=== PATIENT | male | born 1955 | race Caucasian/White ===

== ENCOUNTER 2020-05-21 09:27 | Outpatient (CLI) | payer MEDICARE, SELFPAY ==
[2020-05-21 10:26] LABS: Cholesterol 248 mg/dL (0-200); HDL Direct 52 mg/dL; Triglycerides 187 mg/dL (<150)
[2020-05-21 10:28] LABS: LDL Cholesterol Direct 150 mg/dL
[2020-05-21 10:49] LABS: Prostate Specific Antigen 1.1 ng/mL (< OR = 4.0)
[2020-05-21 10:58] LABS: Phenytoin Dilantin < 3 ug/mL (10-20)
== END 2020-05-21 09:28 | disposition home or self-care (01) ==
PROVIDERS: PCP Internal Medicine; Visit Provider Internal Medicine
DX: Z12.5 Encounter for screening for malignant neoplasm of prostate (principal); E78.5 Hyperlipidemia, unspecified; R56.9 Unspecified convulsions
CPT/HCPCS: 36415; 80061; 80185; 84153; G0103

== ENCOUNTER 2020-10-01 08:31 | Outpatient (CLI) | payer MEDICARE, SELFPAY ==
--- NOTE | 2020-10-01 11:30 | NEURO_ITS ---
Impression: # Complains of generalized arthralgia and numbness. # Left ulnar neuropathy across the elbow. # No Carpal Tunnel Syndrome. # Needle/EMG exam neurogenic in left ADM and 1st DI.in the ulnar nerve distribution.clinical correlation recommended. Nerve Conduction Studies Anti Sensory Summary Table Stim Site NR Peak (ms) P-T Amp (?V) Site1 Site2 Delta-P (ms) Dist (cm) Tyler (m/s) Left Median Anti Sensory (2-3nd Digit) Wrist 3.6 15.4 Wrist 2-3nd Digit 3.6 14.0 39 Wrist 3.4 34.1 Wrist 2-3nd Digit 3.6 14.0 39 Right Median Anti Sensory (2-3nd Digit) Wrist 3.5 20.3 Wrist 2-3nd Digit 3.5 14.0 40 Wrist 3.3 28.5 Wrist 2-3nd Digit 3.5 14.0 40 Left Radial Anti Sensory (Base 1st Digit) Wrist 2.4 11.0 Wrist Base 1st Digit 2.4 0.0 Right Radial Anti Sensory (Base 1st Digit) Wrist 2.5 13.3 Wrist Base 1st Digit 2.5 0.0 Left Ulnar Anti Sensory (5th Digit) Wrist 3.2 12.9 Wrist 5th Digit 3.2 14.0 44 Right Ulnar Anti Sensory (5th Digit) Wrist 3.2 9.0 Wrist 5th Digit 3.2 14.0 44 Motor Summary Table Stim Site NR Onset (ms) O-P Amp (mV) Site1 Site2 Delta-0 (ms) Dist (cm) Tyler (m/s) Left Median Motor (Abd Poll Brev) Wrist 3.5 2.1 Elbow Wrist 5.5 28.0 51 Elbow 9.0 1.9 Right Median Motor (Abd Poll Brev) Wrist 3.5 3.0 Elbow Wrist 4.5 26.0 58 Elbow 8.0 3.0 Left Ulnar Motor (Abd Dig Minimi) Wrist 3.0 2.8 A Elbow Wrist 6.1 29.0 48 A Elbow 9.1 4.7 B Elbow Wrist 3.6 21.0 58 B Elbow 6.6 4.1 Right Ulnar Motor (Abd Dig Minimi) Wrist 2.8 6.7 A Elbow Wrist 5.2 29.0 56 A Elbow 8.0 5.7 F Wave Studies NR F-Lat (ms) L-R F-Lat (ms) Left Median (Mrkrs) (Abd Poll Brev) 28.69 0.44 Right Median (Mrkrs) (Abd Poll Brev) 28.26 0.44 Left Ulnar (Mrkrs) (Abd Dig Min) 29.42 0.51 Right Ulnar (Mrkrs) (Abd Dig Min) 29.92 0.51 EMG Side Muscle Nerve Root Ins Act Fibs Amp Dur Recrt Comment Right 1stDorInt Ulnar C8-T1 Nml Nml Nml Nml Nml Right Ext Indicis Radial (Post Int) C7-8 Nml Nml Nml Nml Nml Right Ext Digitorum Radial (Post Int) C7-8 Nml Nml Nml Nml Nml Right BrachioRad Radial C5-6 Nml Nml Nml Nml Nml Right PronatorTeres Median C6-7 Nml Nml Nml Nml Nml Right Abd Poll Brev Median C8-T1 Nml Nml Nml Nml Nml Left 1stDorInt Ulnar C8-T1 Nml Nml Nml >12ms Reduced Left Ext Indicis Radial (Post Int) C7-8 Nml Nml Nml Nml Nml Left Ext Digitorum Radial (Post Int) C7-8 Nml Nml Nml Nml Nml Left BrachioRad Radial C5-6 Nml Nml Nml Nml Nml Left PronatorTeres Median C6-7 Nml Nml Nml Nml Nml Left Abd Poll Brev Median C8-T1 Nml Nml Nml Nml Nml Right ABD Dig Min Ulnar C8-T1 Nml Nml Nml Nml Nml Left ABD Dig Min Ulnar C8-T1 Nml Nml Nml >12ms Reduced MTDD
== END 2020-10-01 08:32 | disposition home or self-care (01) ==
PROVIDERS: PCP Internal Medicine; Visit Provider Psychiatry & Neurology Neurology
DX: R20.2 Paresthesia of skin (principal); G56.22 Lesion of ulnar nerve, left upper limb
CPT/HCPCS: 95886; 95911

== ENCOUNTER 2020-11-20 07:45 | Outpatient (CLI) | payer MEDICARE, SELFPAY ==
[2020-11-20 08:47] LABS: Alanine Aminotransferase 12 U/L (4-50); Albumin Level 4.4 g/dL (3.5-5.1); Alkaline Phosphatase 48 U/L (38-126); Anion Gap 6 mmol/L (8-16); Aspartate Amino Transferase 21 U/L (17-59); Bilirubin,Total 0.3 mg/dL (0.2-1.3); Blood Urea Nitrogen 15 mg/dL (9-20); Calcium 8.9 mg/dL (8.4-10.2); Carbon Dioxide 27 mmol/L (22-30); Chloride 108 mmol/L (98-107); Cholesterol 270 mg/dL (0-200); Estimated Glomerular Filt Rate > 60; Glucose 115 mg/dL (75-110); HDL Direct 59 mg/dL; Phenytoin Dilantin 6 ug/mL (10-20); Potassium 4.4 mmol/L (3.4-5.0); Sodium 141 mmol/L (137-145); Triglycerides 142 mg/dL (<150)
[2020-11-20 08:57] LABS: LDL Cholesterol Direct 163 mg/dL
== END 2020-11-20 07:46 | disposition home or self-care (01) ==
PROVIDERS: PCP Internal Medicine; Visit Provider Nurse Practitioner
DX: G40.409 Other generalized epilepsy and epileptic syndromes, not intractable, without status epilepticus (principal); E78.5 Hyperlipidemia, unspecified; Z12.5 Encounter for screening for malignant neoplasm of prostate; E67.1 Hypercarotenemia; Z51.81 Encounter for therapeutic drug level monitoring
CPT/HCPCS: 36415; 80053; 80061; 80185; 84153; 84443; G0103

== ENCOUNTER 2021-01-09 08:55 | Outpatient (CLI) | payer MEDICARE, SELFPAY ==
[2021-01-09 09:27] LABS: Alanine Aminotransferase 16 U/L (4-50); Albumin Level 4.8 g/dL (3.5-5.1); Alkaline Phosphatase 50 U/L (38-126); Anion Gap 8 mmol/L (8-16); Aspartate Amino Transferase 32 U/L (17-59); Bilirubin,Total 0.2 mg/dL (0.2-1.3); Blood Urea Nitrogen 17 mg/dL (9-20); Calcium 9.8 mg/dL (8.4-10.2); Carbon Dioxide 30 mmol/L (22-30); Chloride 106 mmol/L (98-107); Cholesterol 296 mg/dL (0-200); Estimated Glomerular Filt Rate > 60; Glucose 129 mg/dL (75-110); HDL Direct 62 mg/dL; Phenytoin Dilantin 6 ug/mL (10-20); Potassium 4.8 mmol/L (3.4-5.0); Sodium 144 mmol/L (137-145); Triglycerides 137 mg/dL (<150)
[2021-01-09 09:36] LABS: LDL Cholesterol Direct 152 mg/dL
== END 2021-01-09 08:56 | disposition home or self-care (01) ==
PROVIDERS: PCP Internal Medicine; Visit Provider Nurse Practitioner
DX: E78.5 Hyperlipidemia, unspecified (principal); Z51.81 Encounter for therapeutic drug level monitoring
CPT/HCPCS: 36415; 80053; 80061; 80185; 82248

== ENCOUNTER 2021-06-30 18:48 | Emergency (ER) | payer MEDICARE, SELFPAY ==
--- NOTE | ~2021-06-30 | XR_ITS ---
EXAMINATION: XR chest 2V DATE: 06/30/2021 19:31 INDICATION: Weakness TECHNIQUE: frontal and lateral views of the chest were obtained. COMPARISON: None FINDINGS: The lungs are clear with no focal airspace opacities, pulmonary edema, pleural effusion or pneumothor ax. The cardiomediastinal silhouette is normal. Mild thoracic spondylosis. IMPRESSION: 1. No acute cardiopulmonary disease. Reviewed, dictated and finalized at location A. 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
--- NOTE | ~2021-06-30 | CT_ITS ---
EXAMINATION: CT brain wo con DATE: 06/30/2021 23:00 INDICATION: Weakness TECHNIQUE: Computed tomography (CT) of the head was performed without intravenous contrast. Sagittal and coronal reconstructions were performed. Automated exposure control and iterative reconstruction t echnique were employed. The dose-length product was 605.33 mGy-cm. COMPARISON: None FINDINGS: No acute intracranial hemorrhage, acute infarction or abnormal extra axial fluid collection. Ventricl es are normal and symmetric. No mass/mass effect. Mild mucosal thickening the bilateral ethmoid and l eft maxillary sinuses. The orbits and mastoid air cells are normal. IMPRESSION: 1. No acute intracranial process. Reviewed, dictated and finalized at location A. 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
[2021-06-30 18:55] VITALS: BP 153/84; PULSE 79; RESP 17; TEMP 36.4; O2SAT 100
--- NOTE | 2021-06-30 18:56 | ECG_ITS ---
Measurements Intervals [place] Rate: 71 P: 20 ND: 109 QRS: 4 QRSD: 84 T: 40 QT: 346 QTc: 378 Interpretive Statements SINUS RHYTHM WITH SHORT ND INTERVAL VOLTAGE CRITERIA FOR LVH MINIMAL Q WAVES- HIGH LATERAL LEADS BASELINE ARTIFACT- I BORDERLINE ECG Electronically Signed On 06-30-2021 20:20:33 DIESEL MACHINIST by Brooks Hurtado D.O.
[2021-06-30 19:47] LABS: Basophils Percent Auto 0.5 % (0.2-1.2); Eosinophils Absolute Auto 0.1 K/mm3 (0-0.3); Eosinophils Percent Auto 2.4 % (0-4.4); Hematocrit 39.1 % (42.0-52.0); Immature Granulocyte Absolute 0.02 K/mm3 (0.00-0.031); Immature Granulocyte Percent A 0.3 % (0-0.5); Lymphocytes Absolute Auto 1.74 K/mm3 (0.9-3.2); Lymphocytes Percent Auto 29.9 % (18.3-44.2); Mean Corpuscular HGB Conc 33.2 g/dl (32-36); Mean Corpuscular Hemoglobin 30.2 pg (26-34); Mean Corpuscular Volume 90.7 fl (80-100); Mean Platelet Volume 9.7 fl (7.4-10.4); Monocytes Absolute Auto 0.7 K/mm3 (0.1-0.6); Monocytes Percent Auto 12.5 % (2.6-8.5); Neutrophils Absolute Auto 3.2 K/mm3 (1.3-6.7); Neutrophils Percent Auto 54.4 % (45.5-73.1); Platelet Count Result 292 k/mm3 (150-375); Red Blood Count 4.31 M/mm3 (4.6-6.20); Red Cell Distribution Width 12.1 % (11.5-14.5); White Blood Count 5.8 K/mm3 (4.5-10.0)
[2021-06-30 20:00] LABS: Alanine Aminotransferase 20 U/L (4-50); Alkaline Phosphatase 46 U/L (38-126); Anion Gap 10 mmol/L (8-16); Aspartate Amino Transferase 24 U/L (17-59); Bilirubin,Total 0.4 mg/dL (0.2-1.3); Blood Urea Nitrogen 22 mg/dL (9-20); Calcium 10.2 mg/dL (8.4-10.2); Carbon Dioxide 25 mmol/L (22-30); Chloride 105 mmol/L (98-107); Estimated CRCL calculation 51 ml/min; Estimated Glomerular Filt Rate > 60; Glucose 120 mg/dL (65-110); Potassium 3.9 mmol/L (3.4-5.0); Sodium 140 mmol/L (137-145)
[2021-06-30 20:59] VITALS: BP 151/81; PULSE 82; RESP 18; TEMP 36.1; O2SAT 100
--- NOTE | 2021-06-30 22:10 | ED.WEAKNESS ---
HPI - Weakness General Chief complaint: Weakness Stated complaint: legs are hurting and weak Time Seen by Provider: 06/30/21 21:54 Source: patient Mode of arrival: ambulatory Limitations: no limitations History of Present Illness HPI Narrative: Patient is a 65-year-old male complaining of generalized weakness, especially lower extremities, started this past week states that he almost fell few times due to it. Patient denies any speech or visual disturbance, focal weakness or numbness, dizziness, headache, chest pain, shortness of breath, abdominal pain, nausea, vomiting, diarrhea, fever or chills. Mother states that ever since he was taken off phenytoin he has been having the above symptoms. Related Data Allergies Allergy/AdvReac Type Severity Reaction Status Date / Time No Known Allergies Allergy Verified 06/30/21 22:22 Review of Systems Review of Systems: All systems reviewed & are unremarkable except as noted in HPI and below Constitutional: Constitutional: Denies body ache(s), Denies chills, Denies excessive sweating, Denies fatigue, Denies fever(s), Denies headache(s), Denies lethargy, Denies malaise, Denies weakness and Denies weight loss Eyes: Eyes: Denies blurry vision, Denies change in vision and Denies loss of vision ENT: Denies dizziness, Denies ear discharge, Denies headache(s), Denies lip swelling, Denies epistaxis, Denies nasal congestion, Denies neck pain, Denies throat swelling and Denies tongue swelling Cardiovascular: Cardiovascular: Denies chest pain, Denies chest pain at rest, Denies chest pain with activity, Denies diaphoresis, Denies rapid heart rate, Denies edema, Denies irregular heart rhythm, Denies lightheadedness, Denies palpitations, Denies dyspnea and Denies dyspnea on exertion Respiratory: Respiratory: Denies chest congestion, Denies cough, Denies hemoptysis, Denies dyspnea and Denies dyspnea on exertion Gastrointestinal: Gastrointestinal: Denies abdominal pain, Denies melena, Denies hematochezia, Denies diarrhea, Denies nausea, Denies vomiting and Denies hematemesis Musculoskeletal: Musculoskeletal: Denies abnormal gait, Denies deformity, Denies joint swelling, Denies limited range of motion, Denies neck pain and Denies numbness Neurologic: Denies Abnormal speech present, Denies abnormal gait, Denies confusion, Denies dizziness, Denies headache(s), Denies focal weakness, Denies loss of vision, Denies numbness, Denies Other visual disturbances and Denies Sensory deficit (Neuro) Psychiatric: Psychiatric: Denies confusion, Denies depression, Denies auditory hallucinations, Denies homicidal ideation and Denies suicidal ideation Endocrine: Endocrine: Denies cold intolerance, Denies excessive sweating, Denies fatigue, Denies heat intolerance and Denies palpitations Hematologic/Lymphatic: Hematologic/Lymphatic: Denies easy bleeding and Denies easy bruising Allergic/Immunologic: Allergic/Immunologic: Denies lip swelling, Denies throat swelling and Denies tongue swelling PMFSH Past Medical History Medical History Anoxic brain injury Issue at Hyperlipidemia Seizure disorder, grand mal Social History Social History Smoking status: Never smoker Alcohol intake: never Substance use: never Gender identity (if verbalized by the patient): Male Agree to blood products: Yes Exam Const: General: cooperative, healthy appearing, comfortable, no acute distress, well developed, alert and awake; No confusion Orientation/consciousness: oriented to person, oriented to place, oriented to time, patient oriented x3 and No confusion Limitations: no limitations HENMT: Head: normal to inspection, normocephalic and atraumatic Ears: hearing grossly normal bilaterally, TM normal on the right and TM normal on the left General nose exam: Normal external nose present, Normal nares present and No nasal
[2021-06-30 22:20] VITALS: BP 135/93; PULSE 80; RESP 20; O2SAT 100
[2021-06-30 22:21] VITALS: PULSE 78
[2021-06-30] MEDS: SODIUM CHLORIDE 0.9% IV 1,000 ML 999 ML IV CONT (22:21)
[2021-06-30 22:56] LABS: Add Urine Microscopic? YES; Appearance Urine Cloudy (Clear); Bacteria Urine Trace /hpf; Bilirubin Urine Negative (Negative); Blood Urine Negative (Negative); Budding Yeast Urine Present /hpf; Color Urine Yellow (Yellow); Glucose Urine UA Negative (Negative); Ketones Urine Negative (Negative); Leukocyte Esterase Ur Negative LEU/UL (Negative); Mucus Urine Few /lpf; Nitrate Urine Negative (Negative); Protein Urine Negative (Negative); Squamous Epithelial Cell Urine Rare /hpf (Few); Urobilinogen Urine Negative mg/dL (<2.0)
[2021-06-30 23:29] VITALS: BP 142/87; PULSE 78; RESP 15; O2SAT 99
[2021-06-30 23:34] LABS: Troponin I < 0.012 ng/mL (0.000-0.034)
[2021-07-01 00:19] VITALS: BP 144/92; PULSE 69; RESP 17; O2SAT 100
== END 2021-07-01 00:21 | disposition home or self-care (01) ==
PROVIDERS: Emergency Medicine; Emergency Provider Emergency Medicine; PCP Emergency Medicine
DX: R53.1 Weakness (principal); N39.0 Urinary tract infection, site not specified; E78.5 Hyperlipidemia, unspecified; G40.909 Epilepsy, unspecified, not intractable, without status epilepticus; R94.31 Abnormal electrocardiogram [ECG] [EKG]
CPT/HCPCS: 36415; 70450; 71046; 80053; 81001; 84484; 85025; 93005; 96361; 96365; 99284; J0696; J7030

== ENCOUNTER 2021-08-29 07:58 | Outpatient (CLI) | payer MEDICARE, SELFPAY ==
[2021-08-29 09:38] LABS: Alanine Aminotransferase 24 U/L (4-50); Albumin Level 4.6 g/dL (3.5-5.1); Alkaline Phosphatase 48 U/L (38-126); Anion Gap 11 mmol/L (8-16); Aspartate Amino Transferase 29 U/L (17-59); Bilirubin,Total 0.7 mg/dL (0.2-1.3); Blood Urea Nitrogen 23 mg/dL (9-20); Calcium 9.4 mg/dL (8.4-10.2); Carbon Dioxide 22 mmol/L (22-30); Chloride 105 mmol/L (98-107); Cholesterol 217 mg/dL (0-200); Estimated Glomerular Filt Rate > 60; Glucose 160 mg/dL (65-110); HDL Direct 38 mg/dL; Potassium 4.3 mmol/L (3.4-5.0); Sodium 138 mmol/L (137-145); Triglycerides 163 mg/dL (<150)
[2021-08-29 11:28] LABS: LDL Cholesterol Direct 127 mg/dL
== END 2021-08-29 07:59 | disposition home or self-care (01) ==
PROVIDERS: PCP Emergency Medicine; Visit Provider Emergency Medicine
DX: E78.5 Hyperlipidemia, unspecified (principal)
CPT/HCPCS: 36415; 80053; 80061

== ENCOUNTER 2021-09-08 13:45 | Outpatient (CLI) | payer MEDICARE, SELFPAY ==
[2021-09-08 18:13] LABS: Hemoglobin A1C 5.7 % (<5.7)
== END 2021-09-08 13:46 | disposition home or self-care (01) ==
PROVIDERS: PCP Emergency Medicine; Visit Provider Emergency Medicine
DX: R73.09 Other abnormal glucose (principal); E78.2 Mixed hyperlipidemia
CPT/HCPCS: 36415; 83036

== ENCOUNTER 2022-01-05 07:59 | Outpatient (CLI) | payer MEDICARE, SELFPAY ==
[2022-01-05 08:35] LABS: Alanine Aminotransferase 20 U/L (6-50); Albumin Level 4.4 g/dL (3.5-5.1); Alkaline Phosphatase 42 U/L (38-126); Anion Gap 7 mmol/L (8-16); Aspartate Amino Transferase 25 U/L (17-59); Bilirubin,Total 0.5 mg/dL (0.2-1.3); Blood Urea Nitrogen 21 mg/dL (9-20); Calcium 8.7 mg/dL (8.4-10.2); Carbon Dioxide 26 mmol/L (22-30); Chloride 106 mmol/L (98-107); Cholesterol 188 mg/dL (0-200); Estimated Glomerular Filt Rate 55; Glucose 115 mg/dL (65-110); HDL Direct 42 mg/dL; Potassium 4.4 mmol/L (3.4-5.0); Sodium 139 mmol/L (137-145); Triglycerides 95 mg/dL (<150)
[2022-01-05 08:46] LABS: LDL Cholesterol Direct 111 mg/dL
== END 2022-01-05 08:00 | disposition home or self-care (01) ==
LOC: ANHLAB 08:00
PROVIDERS: PCP Emergency Medicine; Visit Provider Emergency Medicine
DX: E78.2 Mixed hyperlipidemia (principal)
CPT/HCPCS: 36415; 80053; 80061

== ENCOUNTER 2022-01-15 09:46 | Outpatient (CLI) | payer MEDICARE, SELFPAY ==
--- NOTE | ~2022-01-15 | XR_ITS ---
EXAMINATION: XR lumbar spine 2-3V DATE: 01/15/2022 10:10 INDICATION: Dorsalgia, unspecified. TECHNIQUE: 3 views of lumbar spine were obtained. COMPARISON: None. FINDINGS: There is 4 degrees levocurvature of lumbar spine. There is 3 mm retrolisthesis of L2 on L3 and L3 on L4. Vertebral body heights are normal. There is mildly decreased disc height at L2-L3 and L 3-L4. There are endplate osteophytes at most levels. There is multilevel mild facet joint osteoarthri tis. IMPRESSION: 1. Mild lumbar spondylosis. Reviewed, dictated and finalized at location A. IMPRESSION: 1. Mild lumbar spondylosis.
--- NOTE | ~2022-01-15 | XR_ITS ---
XR knee LT 2V 01/15/2022 10:10 Indication: Left knee pain Procedure: 2 views left knee Comparison: No prior studies for comparison. Findings: There is mild polyarticular osteoarthritis of the left knee. No acute fracture or traumatic malalignment. No significant joint effusion. No foreign body. Impression: 1: Mild polyarticular osteoarthritis of the left knee. Reviewed, dictated and finalized at location A. Impression: 1: Mild polyarticular osteoarthritis of the left knee.
--- NOTE | ~2022-01-15 | XR_ITS ---
XR knee RT 2V 01/15/2022 10:10 Indication: Right knee pain Procedure: 2 views right knee Comparison: No prior studies for comparison. Findings: There is mild patellofemoral compartment osteoarthritis. No acute fracture or traumatic mal alignment. No significant joint effusion. There is a small radiodensity in the subcutaneous tissues i nferior to the patella, suspicious for foreign body measuring 2 mm. Impression: 1: Mild patellofemoral compartment osteoarthritis. 2: Radiodensity measuring 2 mm in the subcutaneous tissues inferior to the patella, best seen on late ral view, consistent with foreign body. Reviewed, dictated and finalized at location A. Impression: 1: Mild patellofemoral compartment osteoarthritis. 2: Radiodensity measuring 2 mm in the subcutaneous tissues inferior to the russell lla, best seen on lateral view, consistent with foreign body.
== END 2022-01-15 09:47 | disposition home or self-care (01) ==
LOC: ANHIMG 09:47
PROVIDERS: PCP Emergency Medicine; Visit Provider Emergency Medicine
DX: M25.569 Pain in unspecified knee (principal); G89.29 Other chronic pain; M54.9 Dorsalgia, unspecified; M47.816 Spondylosis without myelopathy or radiculopathy, lumbar region; M17.0 Bilateral primary osteoarthritis of knee; R93.89 Abnormal findings on diagnostic imaging of other specified body structures
CPT/HCPCS: 72100; 73560

== ENCOUNTER 2022-02-13 07:48 | Observation (INO) | payer MEDICARE, SELFPAY ==
[2022-02-13] VITALS (18 sets, daily range): BP systolic 111–175; BP diastolic 68–89; PULSE 63–91; RESP 12–22; TEMP 35.6–37.5; O2SAT 88–100; BMI 27.7
--- NOTE | ~2022-02-13 | NM_ITS ---
EXAMINATION: NM venu stress w perfusion DATE: 02/16/2022 14:24 INDICATION: Chest pain TECHNIQUE: Rest images were obtained following intravenous administration of 9.9 mCi Tc99m tetrofosmi n (Myoview). The patient was infused intravenously with Lexiscan (Regadenoson). Then, 31.2 mCi Tc99m tetrofosmin (Myoview) was administered intravenously, and stress images were obtained. Data was recon structed into short axis and horizontal and vertical long axis SPECT images. Gated SPECT images were also obtained. COMPARISON: None. FINDINGS: There is no definite reversible or fixed perfusion abnormality to suggest ischemia or infar ction. There is normal left ventricular chamber size, wall motion and ejection fraction. Left ventr icular ejection fraction measures 51%. IMPRESSION: 1. Normal myocardial perfusion at rest and during stress. 2. Left ventricular ejection fraction measuring 51%. Reviewed, dictated and finalized at location A.
--- NOTE | ~2022-02-13 | CT_ITS ---
EXAMINATION: CTA chest PE protocol DATE: 02/13/2022 09:16 INDICATION: Shortness of breath. Medial chest pain. Elevated d-dimer. TECHNIQUE: Computed tomography angiography (CTA) of the chest was performed with 100 mL Omnipaque-350 intravenous contrast timed to evaluate the pulmonary arteries. Coronal maximum intensity projection 3D-reconstructions were created by the technologist. Automated exposure control and iterative reconst ruction technique were employed. Exam dose: 336.74 mGy-cm total exam DLP. COMPARISON: 02/13/2022 portable AP chest FINDINGS: There is diagnostic contrast enhancement of the pulmonary arteries and no evidence of pulmo nary embolism. No thoracic aortic aneurysm or dissection. Cardiomegaly. No pericardial or pleural effusion. No hilar or mediastinal mass lesion or lymphadenopa thy. Minimal atelectasis in the lower lobes. No pulmonary consolidation or pulmonary mass lesion. Small sliding hiatal hernia. Included skeletal structures are unremarkable. IMPRESSION: No evidence of pulmonary embolus and Small sliding hiatal hernia Reviewed, dictated and finalized at Location [facility]. Reviewed, dictated and finalized at location A.
--- NOTE | ~2022-02-13 | XR_ITS ---
XR chest 1V portable DATE: 02/13/2022 08:19 INDICATION: Sharp chest pain. Shortness of breath, cough. TECHNIQUE: Portable upright AP chest on 02/13/2022 at 0817 hours COMPARISON: 06/30/2021 AP and lateral views FINDINGS: Heart size appears within normal limits. Minimal atelectasis at the lung bases. The lungs otherwise appear clear. No pleural effusion or pulmo nary vascular congestion or pneumothorax. IMPRESSION: Minimal atelectasis at the lung bases Reviewed, dictated and finalized at location A.
--- NOTE | 2022-02-13 07:52 | ECG_ITS ---
Measurements Intervals [place] Rate: 66 P: 62 [place]: 159 QRS: -3 QRSD: 86 T: 33 QT: 374 QTc: 394 Interpretive Statements SINUS RHYTHM VENTRICULAR PREMATURE COMPLEX BASELINE ARTIFACT- II, III BORDERLINE ECG Electronically Signed On 02-13-2022 9:00:47 CDT by Brooks Hurtado D.O.
--- NOTE | 2022-02-13 08:00 | ED.CHESTPAIN ---
HPI - Chest Pain General Chief Complaint: Chest Pain Stated Complaint: CP Time Seen by Provider: 02/13/22 07:51 History of Present Illness HPI narrative: pt awake then around 6am sharp and pressure nonradiating 03/24 cp says no h/o this with sob and sweating. no f/uri/n/v/d/abd pain or other leg issues only risk factor high chol Related Data Allergies Allergy/AdvReac Type Severity Reaction Status Date / Time No Known Allergies Allergy Verified 02/13/22 08:01 Review of Systems Constitutional: Comments: CONSTITUTIONAL: Denies fever, chills, has sweats. EYES: Denies visual changes, redness, or discharge. ENT: Denies rhinorrhea, congestion, sore throat, or otalgia. CARDIOVASCULAR: Denies, palpitations, or edema. has cp RESPIRATORY: Denies cough has sob GASTROINTESTINAL: Denies abdominal pain, nausea, vomiting, or diarrhea. GENITOURINARY: Denies dysuria or hematuria. SKIN: Denies rash or itching. MUSCULOSKELETAL: Denies back pain, joint pain, or myalgia. NEUROLOGIC: Denies headache, numbness, or weakness. PSYCHIATRIC: Denies anxiety or depression. [facility] Past Medical History Medical History Anoxic brain injury Issue at Hyperlipidemia Seizure disorder, grand mal Social History Social History Smoking status: Never smoker Alcohol intake: never Substance use: never Gender identity (if verbalized by the patient): Male Agree to blood products: Yes Exam Const: Other: APPEARANCE: Well appearing, no pain in distress, well-nourished. Head normocephalic atraumtaic. EYES: PERRLA/EOMI, conjunctivae very clear. NOSE: Normal no drainage EARS:TMS clear Regi Robison, with good light reflex. THROAT: Pharynx clear, no exudate. NECK: Supple. No adenopathy, no masses. RESPIRATORY: Airway patent, repsirations nonlabored. Clear to auscultation bilaterally, no rales, rhonchi, wheezing. mild tachypnea CARDIOVASCULAR: Regular rate and rhythm without murmurs rubs or gallops. ABDOMINAL: Soft, nontender, nondistended, no hepatosplenomegally MUSCULOSKELETAl: Moves all extremities. Strenght/ROM intact, No edema, No calf tenderness. NEURO: Alert. Cranial nerves II through XII intact. Good gait. Good coordination SKIN:: Warm, Normal Color clamy PSYCHIATRIC: Normal affect/mood, normal interaction with parents. mild anxiety Course Course Emergency Course: pt later admitted to nurse coughing for last 24-48 hours so she added covid test Dr Parsons accepts want cardio consult Dr Bond paged also at 0940 Reevaluation(s) Reevaluation #1: pt sleepy after meds updated on results at 0922 Vital Signs Vital signs: Vital Signs Temperature 36.7 C 02/13/22 07:53 Pulse Rate 67 02/13/22 07:53 Respiratory Rate 17 02/13/22 07:53 Pulse Oximetry 100 02/13/22 07:53 Oxygen Delivery Room Air 02/13/22 07:53 Temperature 36.7 C 02/13/22 07:53 Pulse Rate 88 02/13/22 09:13 Respiratory Rate 19 02/13/22 09:13 Blood Pressure 167/89 H 02/13/22 09:13 Pulse Oximetry 88 L 02/13/22 09:13 Oxygen Delivery Room Air 02/13/22 08:17 MDM - Chest Pain Lab Data Result diagrams: 02/13/22 08:02 02/13/22 08:02 Labs: Lab Results 02/13/22 02/13/22 02/13/22 Range/Units 08:02 08:02 08:02 WBC 6.5 (4.5-10.0) K/mm3 RBC 4.41 L (4.6-6.20) M/mm3 Hgb 13.0 L (14.0-18.0) g/dL Hct 38.9 L (42.0-52.0) % MCV 88.2 (80-100) fl MCH 29.5 (26-34) pg MCHC 33.4 (32-36) g/dl RDW 12.3 (11.5-14.5) % Plt Count 247 (150-375) k/mm3 MPV 9.7 (7.4-10.4) fl Immature Gran % (Auto) 0.5 (0-0.5) % Neut % (Auto) 58.5 (45.5-73.1) % Lymph % (Auto) 24.2 (18.3-44.2) % Clinch % (Auto) 13.5 H (2.6-8.5) % Eos % (Auto) 3.1 (0-4.4) % Baso % (Auto) 0.2 (0.2-1.2) % Lymph # (Auto) 1.58 (0.9-3.2) K/mm3 Clinch # (Auto) 0.9 H (0.1-0.6) K/mm3
[2022-02-13] MEDS: MORPHINE SULFATE (*CRX) 4 MG/ML INJ IV PUSH (08:06)
[2022-02-13] MEDS: ASPIRIN 81 MG CHEWABLE TABLET 324 MG PO (08:07)
[2022-02-13] MEDS: ONDANSETRON INJ 4 MG/2 ML VIAL IV PUSH (08:07)
[2022-02-13] MEDS: NITROGLYCERIN OINTMENT 1 INCH DOSE TOPICAL (08:11)
[2022-02-13 08:13] LABS: Basophils Percent Auto 0.2 % (0.2-1.2); Eosinophils Absolute Auto 0.2 K/mm3 (0-0.3); Eosinophils Percent Auto 3.1 % (0-4.4); Hematocrit 38.9 % (42.0-52.0); Immature Granulocyte Absolute 0.03 K/mm3 (0.00-0.031); Immature Granulocyte Percent A 0.5 % (0-0.5); Lymphocytes Absolute Auto 1.58 K/mm3 (0.9-3.2); Lymphocytes Percent Auto 24.2 % (18.3-44.2); Mean Corpuscular HGB Conc 33.4 g/dl (32-36); Mean Corpuscular Hemoglobin 29.5 pg (26-34); Mean Corpuscular Volume 88.2 fl (80-100); Mean Platelet Volume 9.7 fl (7.4-10.4); Monocytes Absolute Auto 0.9 K/mm3 (0.1-0.6); Monocytes Percent Auto 13.5 % (2.6-8.5); Neutrophils Absolute Auto 3.8 K/mm3 (1.3-6.7); Neutrophils Percent Auto 58.5 % (45.5-73.1); Platelet Count Result 247 k/mm3 (150-375); Red Blood Count 4.41 M/mm3 (4.6-6.20); Red Cell Distribution Width 12.3 % (11.5-14.5); White Blood Count 6.5 K/mm3 (4.5-10.0)
[2022-02-13 08:24] LABS: INR 1.1; Prothrombin Time 13.8 Seconds (11.1-14.7)
[2022-02-13 08:25] LABS: Partial Thromboplastin Time 26.9 SECONDS (22.3-36.8)
[2022-02-13 08:26] LABS: Ethanol < 10 mg/dL (<10)
[2022-02-13 08:28] LABS: Alanine Aminotransferase 20 U/L (6-50); Albumin Level 4.6 g/dL (3.5-5.1); Alkaline Phosphatase 52 U/L (38-126); Anion Gap 7 mmol/L (8-16); Aspartate Amino Transferase 23 U/L (17-59); Bilirubin,Total 0.2 mg/dL (0.2-1.3); Blood Urea Nitrogen 29 mg/dL (9-20); Calcium 8.8 mg/dL (8.4-10.2); Carbon Dioxide 24 mmol/L (22-30); Chloride 107 mmol/L (98-107); Estimated CRCL calculation 45 ml/min; Estimated Glomerular Filt Rate 55; Glucose 141 mg/dL (65-110); Lipase 235 U/L (23-300); Magnesium 1.9 mg/dL (1.6-2.3); Potassium 3.6 mmol/L (3.4-5.0); Sodium 138 mmol/L (137-145)
[2022-02-13 08:30] LABS: D Dimer 0.67 ug/mL (<0.48)
[2022-02-13 08:38] LABS: Troponin I < 0.012 ng/mL (0.000-0.034)
[2022-02-13] MEDS: LORazepam INJ (*CRX) 2 MG/ML VIAL 1 MG IV PUSH (08:43)
[2022-02-13] MEDS: HYDROmorphone HCL INJ (*CRX) 1 MG/ML SYR 2 MG IM (08:45)
--- NOTE | 2022-02-13 08:50 | PC.NURSE ---
Pt to CT scan via stretcher at this time, pt is on tele monitor.
[2022-02-13 08:56] LABS: SARS-CoV-2 RNA PCR Negative
--- NOTE | 2022-02-13 11:17 | PC.NURSE ---
Report received by JOSE C Hurtado with the ED department at 1113. Patient to go to IMU room 205-2.
[2022-02-13 11:29] LABS: Troponin I < 0.012 ng/mL (0.000-0.034)
--- NOTE | 2022-02-13 11:40 | ADMGEN ---
This patient, Kuldeep Sims, was admitted to IMU Room 205-02 at 1135 from the ED. Patient/family oriented to hospital policies and general routines including ID bracelet, bed and alarms, visiting hours, pain management, procedures, bathroom and other care routines, personal items, smoking policy, room service/diet, and visiting hours. Information on how to activate the Rapid Response Team has been discussed. Patient/Family are encouraged to report perceived risks to care and to ask questions if they do not understand what they are told or what they should do.
--- NOTE | 2022-02-13 12:11 | PM.IMHP ---
H&P: HPI History of Present Illness Date/Time: 02/13/22 12:11 Chief Complaint: Chest pain Narrative: patient is 66-year-old male with a past medical history of anoxic brain injury, issue since , hyperlipidemia, and seizure disorder-grand mal. he presented to [facility] with complaints of sharp pain and pressure that was nonradiating 8/10 chest pain at 6:00 a.m. this morning. Patient denies any history of shortness of breath, chest pain, and diaphoresis. He did endorse a cough for the last 24-48 hours to an emergency department nurse and therefore COVID test was added. While in the emergency department labs and imaging were obtained. Patient had WBC of 6.5, hemoglobin 13, hematocrit 38.9 and platelet 247, sodium 138, potassium 3.6, BUN 29, creatinine 1.3, glucose 141 and a negative troponin. Lipase 235-WNL an alcohol level that was negative. A chest x-ray did reveal minimal atelectasis at the lung bases and a CTA was performed with no evidence of pulmonary embolism and had a small sliding had heel hernia. EKG revealed normal sinus rhythm with PVCs no ST changes. Hospitalist was consulted for further observation. Patient was administered 324 mg of aspirin x1, received Dilaudid, lorazepam, morphine and 1 in nitroglycerin ointment applied to the chest. Cardiology was consulted During the patient's hospitalization he will have troponins trend, telemetry monitoring and possible need for cardiology intervention. family at bedside very involved in his care. questions answered at bedside. Review of Systems Review of Systems: All systems reviewed & are unremarkable except as noted in HPI and below PMFSH Past Medical History Medical History Anoxic brain injury Issue at Hyperlipidemia Seizure disorder, grand mal Social History Social History Smoking status: Never smoker Alcohol intake: never Substance use: never Substance use type: does not use Gender identity (if verbalized by the patient): Male Spiritual care concerns: No Agree to blood products: Yes Meds Home Medications and Allergies Home Medications Medication Instructions Recorded Confirmed Type fenofibrate nanocrystallized 145 145 mg PO DAILY #90 tabs 11/27/21 Rx mg tablet Allergies Allergy/AdvReac Type Severity Reaction Status Date / Time No Known Allergies Allergy Verified 02/13/22 08:01 Vital Signs Vital Signs - 24 hr 02/13/22 07:53 02/13/22 07:59 02/13/22 08:07 Temperature 98.0 F Pulse Rate 67 63 67 Respiratory Rate 17 22 H Blood Pressure 175/89 H Pulse Oximetry 100 100 Oxygen Delivery Room Air 02/13/22 08:17 02/13/22 09:13 02/13/22 09:49 Temperature Pulse Rate 88 71 Respiratory Rate 19 15 Blood Pressure 167/89 H 132/82 Pulse Oximetry 100 88 L 96 Oxygen Delivery Room Air 02/13/22 10:51 02/13/22 11:24 02/13/22 12:09 Temperature 96.0 F L Pulse Rate 65 87 91 Respiratory Rate 12 17 18 Blood Pressure 142/81 H 130/82 123/79 Pulse Oximetry 99 99 96 Oxygen Delivery Exam Narrative: General: No acute distress. Mental Status: Awake, alert and oriented to person, place, and time with clear speech. Skin: Skin in warm, dry and intact without rashes or lesions. Head: Normocephalic and atraumatic. Eyes: Conjunctivae are clear without exudates or hemorrhage. Sclera is non-icteric. EOM are intact, PERRLA. Ears: The external ear and canal are non-tender and without swelling or discharge. Nose: Nasal mucosa is pink and moist. Septum midline. Nares patent bilaterally. Throat: Oral mucosa pink and moist with good dentition. Tongue midline. Neck: The neck supple without adenopathy. Trachea midline. No JVD. Cardiac: S1 and S2 regular rate and rhythm. No murmurs, gallops, or rubs auscultated. Respiratory: Chest wall symmetric, nontender and without de
--- NOTE | 2022-02-13 12:18 | ECHO_ITS ---
Patient Info Name: Kuldeep Sims Age: 66 years : 1955 Gender: Male Ht: 64 in Wt: 161 lbs BSA: 1.83 m2 HR: 71 bpm BP: 123 / 79 mmHg Technical Quality: Fair Exam Date: 02/13/2022 1:39 PM Exam Location: [facility] Pulmonary Exam Room: [facility] Patient Status: Inpatient Admit Date: 02/13/2022 Staff Ordering Physician: Rosa Burton APRN Television Director: Johanny Das RDCS Attending Provider: Toney Parsons MD Referring Physician: Micheal ROMANO; Exam Type: CA echo doppler color flow Study Info Indications - sob chest pain Complete two-dimensional, color flow and Doppler transthoracic echocardiogram is performed. Summary 1. Complete two-dimensional, color flow and Doppler transthoracic echocardiogram is performed. 2. Left ventricular chamber dimension is normal. 3. Left ventricular systolic function is normal, estimated at 65-70%. 4. There is mildly increased left ventricular wall thickness. 5. The left ventricular diastolic function is grade I diastolic dysfunction. 6. Right ventricular chamber dimension is normal. 7. Right ventricular systolic function is normal. 8. Left atrial chamber dimension is mildly enlarged. Left Ventricle Left ventricular chamber dimension is normal. Left ventricular systolic function is normal, estimated at 65-70%. There is mildly increased left ventricular wall thickness. Left ventricular septal wall motion is normal. The left ventricular diastolic function is grade I diastolic dysfunction. Right Ventricle Right ventricular chamber dimension is normal. Right ventricular systolic function is normal. Left Atria Left atrial chamber dimension is mildly enlarged. Right Atria Right atrial chamber dimension is normal. Aortic Valve The aortic valve is trileaflet. There is no aortic valve sclerosis. There is no aortic valve stenosis. There is no aortic valve regurgitation. Pulmonic Valve The pulmonic valve is normal. There is no pulmonic valve stenosis. There is no pulmonic regurgitation. Mitral Valve The mitral valve has normal leaflets. There is no mitral valve stenosis. There is no mitral valve regurgitation. Tricuspid Valve The tricuspid valve leaflets are normal. There is no significant tricuspid valve stenosis. There is trace tricuspid valve regurgitation. No pulmonary hypertension, estimated pulmonary arterial systolic pressure is 30 mmHg. Pericardium/Pleural The pericardium appears normal. There is no pericardial effusion. Aorta The aortic root size at the sinus of Valsalva is normal. The prox ascending aorta size is normal. Left Ventricular Outflow Tract Name Value Normal LVOT 2D LVOT Diameter 2.0 cm LVOT Doppler LVOT Peak Gradient 5 mmHg LVOT Mean Gradient 2 mmHg LVOT VTI 22 cm LVOT VTI/AV VTI Ratio 0.6 LVOT Stroke Volume 71 ml LVOT CO 13.7 l/min LVOT CI 7.5 l/min/m2 Pulmonic Valve --------
[2022-02-13 12:36] LABS: Hemoglobin A1C 5.7 % (<5.7)
[2022-02-13] MEDS: NITROGLYCERIN OINTMENT 1 INCH DOSE TRANSDERM ×3 (14:20→23:47)
--- NOTE | 2022-02-13 14:52 | PM.CNCAR ---
Assessment and Plan Assessment and plan (1) Chest pain: Code(s): R07.9 - Chest pain, unspecified Status: Acute Plan Assessment acute chest pain with negative cardiac enzymes and no dynamic EKG changes it is unlikely that his chest pain is cardiac in origin given the fact that his pain has been persistent for hours with negative cardiac enzymes Plan cardiac stress test on Tuesday Start PPI for possible GI related cause for chest pain History of Present Illness History of Present Illness Consult date/time: 02/13/22 14:52 Reason For Visit: Phest Pain, HH Narrative: 66-year-old male patient presented with acute severe chest pain substernal and epigastric sharp pain persistent nonradiating without precipitating or relieving factors. Chest pain started this morning and had been persistent for several hours. Patient denies any prior history of chest pain or heart disease. His no sweating nausea vomiting. Review of Systems Review of Systems: Review of system is negative except for stated above in HPI PMFSH Past Medical History Medical History Anoxic brain injury Issue at Hyperlipidemia Seizure disorder, grand mal Family History Family History (Updated 02/13/22 @ 13:52 by America Jesus RN) Mother Cancer Cerebrovascular accident Father Cancer Sibling Diabetes mellitus Cerebrovascular accident Social History Social History Smoking status: Never smoker Second hand tobacco smoke exposure: Yes (Childhood) Alcohol intake: never Substance use: never Substance use type: does not use Gender identity (if verbalized by the patient): Male Spiritual care concerns: No Agree to blood products: Yes Meds Home Medications and Allergies Home Medications Medication Instructions Recorded Confirmed Type fenofibrate nanocrystallized 145 145 mg PO DAILY #90 tabs 11/27/21 02/13/22 Rx mg tablet Allergies Allergy/AdvReac Type Severity Reaction Status Date / Time No Known Allergies Allergy Verified 02/13/22 08:01 Vital Signs Vital Signs - 24 hr 02/13/22 07:53 02/13/22 07:59 02/13/22 08:07 Temperature 36.7 C Pulse Rate 67 63 67 Respiratory Rate 17 22 H Blood Pressure 175/89 H Pulse Oximetry 100 100 Oxygen Delivery Room Air 02/13/22 08:17 02/13/22 09:13 02/13/22 09:49 Temperature Pulse Rate 88 71 Respiratory Rate 19 15 Blood Pressure 167/89 H 132/82 Pulse Oximetry 100 88 L 96 Oxygen Delivery Room Air 02/13/22 10:51 02/13/22 11:24 02/13/22 12:09 Temperature 35.6 C L Pulse Rate 65 87 91 Respiratory Rate 12 17 18 Blood Pressure 142/81 H 130/82 123/79 Pulse Oximetry 99 99 96 Oxygen Delivery 02/13/22 12:00 02/13/22 12:00 Temperature Pulse Rate 69 Respiratory Rate Blood Pressure Pulse Oximetry Oxygen Delivery Room Air Exam Const: General: comfortable and no acute distress Other: Able to lie flat HENMT: General nose exam: Normal nares present and no epistaxis Mouth: Yes moist mucous membranes Eyes: Sclera: sclerae normal Pupils: Equal, round and reactive pupils present Neck: Neck: supple and no JVD Carotids: no bruits Resp: Auscultation: clear to auscultation bilaterally and lung sounds not diminished Other: No chest wall tenderness Cardio: Rate: regular rate Rhythm: regular rhythm Heart sounds: no gallops, no murmurs and no rubs GI: GI Palp: Yes Soft to palpation and No Tenderness to palpation present (GI) Auscultation: normal bowel sounds Skin: General skin exam: normal color, rashes and/or lesions noted and no erythema Other: Warm Neuro: Cranial nerves: Yes Equal, round and reactive pupils present Speech: normal speech Other: No obvious focal deficit or facial asymmetry Extrem: General: no edema Other: Normal capillary refills Intact distal pulses.
[2022-02-13 15:08] LABS: Troponin I < 0.012 ng/mL (0.000-0.034)
[2022-02-14] VITALS (12 sets, daily range): BP systolic 108–145; BP diastolic 58–88; PULSE 61–88; RESP 16–20; TEMP 36.7–37.3; O2SAT 94–97
[2022-02-14 05:09] LABS: Basophils Percent Auto 0.1 % (0.2-1.2); Eosinophils Absolute Auto 0.1 K/mm3 (0-0.3); Eosinophils Percent Auto 1.5 % (0-4.4); Hematocrit 35.8 % (42.0-52.0); Immature Granulocyte Absolute 0.04 K/mm3 (0.00-0.031); Immature Granulocyte Percent A 0.4 % (0-0.5); Mean Corpuscular HGB Conc 33.5 g/dl (32-36); Mean Corpuscular Hemoglobin 29.8 pg (26-34); Mean Corpuscular Volume 88.8 fl (80-100); Mean Platelet Volume 9.9 fl (7.4-10.4); Monocytes Absolute Auto 1.1 K/mm3 (0.1-0.6); Monocytes Percent Auto 11.7 % (2.6-8.5); Neutrophils Absolute Auto 6.7 K/mm3 (1.3-6.7); Neutrophils Percent Auto 72.3 % (45.5-73.1); Platelet Count Result 240 k/mm3 (150-375); Red Blood Count 4.03 M/mm3 (4.6-6.20); Red Cell Distribution Width 12.4 % (11.5-14.5); White Blood Count 9.3 K/mm3 (4.5-10.0)
[2022-02-14 05:21] LABS: Alanine Aminotransferase 17 U/L (6-50); Albumin Level 4.1 g/dL (3.5-5.1); Alkaline Phosphatase 40 U/L (38-126); Anion Gap 7 mmol/L (8-16); Aspartate Amino Transferase 23 U/L (17-59); Bilirubin,Total 0.7 mg/dL (0.2-1.3); Blood Urea Nitrogen 20 mg/dL (9-20); Calcium 8.5 mg/dL (8.4-10.2); Carbon Dioxide 25 mmol/L (22-30); Chloride 105 mmol/L (98-107); Estimated CRCL calculation 45 ml/min; Estimated Glomerular Filt Rate 60; Glucose 106 mg/dL (65-110); Potassium 3.8 mmol/L (3.4-5.0); Sodium 137 mmol/L (137-145)
[2022-02-14] MEDS: NITROGLYCERIN OINTMENT 1 INCH DOSE TRANSDERM ×4 (06:39→22:32)
--- NOTE | 2022-02-14 07:07 | PM.IMPN ---
Progress Note: A&P Assessment and Plan (1) Chest pain: Code(s): R07.9 - Chest pain, unspecified Status: Acute Assessment and Plan: Monitor vital signs, I&Os, chest pain, shortness of breath and patient is a fall risk Monitor serial troponins, Serum electrolytes, and cbc Keep serum potassium >4 and keep magnesium >2 Cardiology consulted, appreciate assistance and recommendations Nitro paste, per ACS protocol, patient denies any headache or active chest pain. Defer to Cardiology team to continue this medication. Monitor for bloody bowel movements,chest pain,SOB or dizziness/lightheadedness Echocardiogram performed on 02/13/2022, pending results Consider adding atorvastatin 40 mg daily, aspirin 81 mg daily and metoprolol tartrate 25 mg p.o. b.i.d., patient does not have any signs or symptoms of active chest pain or cardiac concerns. Continue to monitor patient received 324 aspirin in the emergency department. (2) Hiatal hernia: Code(s): K44.9 - Diaphragmatic hernia without obstruction or gangrene Status: Acute Assessment and Plan: stable (3) Hyperglycemia: Code(s): R73.9 - Hyperglycemia, unspecified Status: Acute Assessment and Plan: hemoglobin A1c was 5.7. No history is of diabetes mellitus. Patient was hyperglycemic in the emergency department. (4) Seizure disorder, grand mal: Code(s): G40.409 - Other generalized epilepsy and epileptic syndromes, not intractable, without status epilepticus Status: Acute Assessment and Plan: monitor Seizure precautions (5) Anoxic brain injury: Code(s): G93.1 - Anoxic brain damage, not elsewhere classified Status: Acute Assessment and Plan: stable Subjective Date/time seen: 02/14/22 07:07 cardiology evaluated the patient on 02/13/2022 and suggested the patient may have GERD like symptoms and started the patient on Protonix. Patient is also scheduled for stress test on Tuesday and patient. Patient will remain here for the holiday and monitored for cardiac abnormalities. Patient currently denies any chest pain, shortness a breath, nausea, vomiting, upset stomach or diarrhea. He denies active cardiac symptoms. Review of Systems Review of Systems: All systems reviewed & are unremarkable except as noted in HPI and below Exam Narrative: General: No acute distress. Mental Status: Awake, alert and oriented to person, place, and time with clear speech. mentally delayed Skin: Skin in warm, dry and intact without rashes or lesions. Head: Normocephalic and atraumatic. Eyes: Conjunctivae are clear without exudates or hemorrhage. Sclera is non-icteric. EOM are intact, PERRLA. Ears: The external ear and canal are non-tender and without swelling or discharge. Nose: Nasal mucosa is pink and moist. Septum midline. Nares patent bilaterally. Throat: Oral mucosa pink and moist with good dentition. Tongue midline. Neck: The neck supple without adenopathy. Trachea midline. No JVD. Cardiac: S1 and S2 regular rate and rhythm. No murmurs, gallops, or rubs auscultated. Respiratory: Chest wall symmetric, nontender and without deformity or trauma. Respirations even and unlabored. Lung sounds are clear to auscultation in all lobes bilaterally without wheezes, rhonchi, or rales. Abdominal: Abdomen soft, round and non-tender to palpation. Bowel sounds present and normoactive in all 4 quadrants. Spine: Neck and back with grossly normal curvature, no deformity in appearance or signs of trauma. Extremities: Upper and lower extremities atraumatic without tenderness or deformity. Full range of motion and muscle strength 5/5 to all extremities bilaterally. Neurological: Full and symmetric motor and light touch sensation bilaterally. Cranial nerves II-XII grossly intact. Objective Data Vital Signs Vital Signs: Vital Signs - 24 hr 02/13/22 07:53 02/13/22 07:59 02/13/22 08:07 Temperature 98.0 F Pulse Ra
--- NOTE | 2022-02-14 10:06 | PC.NURSE ---
Report given to JOSE C Orellana with 3 med-surg. Patient to go to room 317.
--- NOTE | 2022-02-14 10:20 | PC.NURSE ---
Received from [facility] / via wheelchair.
--- NOTE | 2022-02-14 10:22 | PCCCNOTE ---
On 02/14/22, the student, [Uma Molina], provided care and completed [facility] documentation on this patient. I have reviewed the student's documentation and agree with the findings.
[2022-02-14] MEDS: PANTOPRAZOLE 40 MG TABLET PO (12:25)
--- NOTE | 2022-02-14 13:02 | PM.PNCARD ---
Progress Note: A&P Assessment and Plan (1) Chest pain: Code(s): R07.9 - Chest pain, unspecified Status: Acute Plan Assessment Atypical chest pain with no dynamic EKG changes and normal enzymes Hx of hiatal hernia Plan PPI Stress test on Tuesday Subjective Date/time seen: 02/14/22 13:02 no acute events no chest pain Review of Systems Review of Systems: All systems reviewed & are unremarkable except as noted in HPI and below Exam Const: General: comfortable and no acute distress Other: Able to lie flat Resp: Auscultation: clear to auscultation bilaterally and lung sounds not diminished Other: No chest wall tenderness Cardio: Rate: regular rate Rhythm: regular rhythm Heart sounds: no gallops, no murmurs and no rubs Extrem: General: no edema Other: Normal capillary refills Intact distal pulses. Objective Data Vital Signs Vital Signs: Vital Signs - 24 hr 02/13/22 14:00 02/13/22 16:15 02/13/22 16:00 Temperature 36.2 C L Pulse Rate 81 76 Respiratory Rate 20 Blood Pressure 127/84 Pulse Oximetry 96 Oxygen Delivery Room Air 02/13/22 16:00 02/13/22 18:00 02/13/22 21:06 Temperature 37.5 C Pulse Rate 78 91 89 Respiratory Rate 16 Blood Pressure 111/68 Pulse Oximetry 96 Oxygen Delivery 02/13/22 20:00 02/13/22 20:00 02/13/22 22:00 Temperature Pulse Rate 87 70 Respiratory Rate Blood Pressure Pulse Oximetry 96 Oxygen Delivery Room Air 02/14/22 00:00 02/14/22 00:00 02/14/22 00:00 Temperature 36.7 C Pulse Rate 64 70 Respiratory Rate 16 Blood Pressure 113/66 Pulse Oximetry 96 96 Oxygen Delivery Room Air 02/14/22 04:00 02/14/22 02:00 02/14/22 04:00 Temperature 37.3 C Pulse Rate 67 66 61 Respiratory Rate 16 Blood Pressure 110/60 Pulse Oximetry 94 Oxygen Delivery 02/14/22 04:00 02/14/22 06:00 02/14/22 08:15 Temperature 36.9 C Pulse Rate 68 86 Respiratory Rate 20 Blood Pressure 108/58 L Pulse Oximetry 94 96 Oxygen Delivery Room Air 02/14/22 08:00 02/14/22 10:20 Temperature Pulse Rate 88 Respiratory Rate 20 Blood Pressure Pulse Oximetry 96 Oxygen Delivery Room Air Intake/Output Intake/Output: Intake & Output 02/11/22 02/12/22 02/13/22 02/14/22 23:59 23:59 23:59 23:59 Intake Total 360 240 Output Total 575 825 Balance -215 -585 Meds/Results Medications: Active Medications Generic Name Dose Route Start Last Admin Trade Name Freq PRN Reason Stop Dose Admin Acetaminophen 650 mg 02/13/22 12:18 Acetaminophen 325 Mg Tablet PO Q6H PRN Mild Pain (1-3) or Fever Melatonin 5 mg 02/13/22 21:00 02/13/22 23:09 Melatonin 5 Mg Tablet PO Not Given HS SATHYA Nitroglycerin 1 inch 02/13/22 12:00 02/14/22 12:25 Nitroglycerin Ointment 1 Inch Dose TRANSDERM 1 inch Q6HR SATHYA Administration Ondansetron HCl 4 mg 02/13/22 12:20 Ondansetron Inj 4 Mg/2 Ml Vial IV PUSH Q6H PRN Nausea And Vomiting Pantoprazole Sodium 40 mg 02/14/22 11:30 02/14/22 12:25 Pantoprazole 40 Mg Tablet PO 40 mg QAM SATHYA Administration Perflutren Lipid Microsphere 0 ml 02/13/22 12:18 Perflutren Lipid Microspheres 1.5 Ml Vial Diluted To 10 Ml Total Volume IV PUSH ONCE PRN adequate visualization Protocol Radiology Results: ITS Impressions Chest X-Ray 02/13/22 08:22 IMPRESSION: Minimal atelectasis at the lung bases Chest CTA 02/13/22 09:19 IMPRESSION: No evidence of pulmonary embolus and Small sliding hiatal hernia Labs Labs: Laboratory Results - last 24 hr 02/13/22 02/14/22 02/14/22 14:36 04:32 04:32 WBC 9.3 RBC 4.03 L Hgb 12.0 L Hct 35.8 L MCV 88.8 MCH 29.8 MCHC 33.5 RDW 12.4 Plt Count 240 MPV 9.9 Immature Gran % (Auto) 0.4 Neut % (Auto) 72.3 Lymph % (Auto) 14.0 L [place] % (Auto) 11.7 H Eos % (Auto) 1.5 Baso
[2022-02-14] MEDS: MELATONIN 5 MG TABLET PO (22:32)
[2022-02-15] VITALS (8 sets, daily range): BP systolic 107–125; BP diastolic 68–72; PULSE 77–107; RESP 16–20; TEMP 36.9–37; O2SAT 95–97
[2022-02-15 07:05] LABS: Basophils Percent Auto 0.4 % (0.2-1.2); Eosinophils Absolute Auto 0.4 K/mm3 (0-0.3); Eosinophils Percent Auto 4.5 % (0-4.4); Hematocrit 35.9 % (42.0-52.0); Immature Granulocyte Absolute 0.04 K/mm3 (0.00-0.031); Immature Granulocyte Percent A 0.4 % (0-0.5); Lymphocytes Absolute Auto 1.65 K/mm3 (0.9-3.2); Lymphocytes Percent Auto 18.5 % (18.3-44.2); Mean Corpuscular HGB Conc 33.4 g/dl (32-36); Mean Corpuscular Hemoglobin 29.4 pg (26-34); Mean Platelet Volume 9.8 fl (7.4-10.4); Monocytes Absolute Auto 1.1 K/mm3 (0.1-0.6); Neutrophils Absolute Auto 5.7 K/mm3 (1.3-6.7); Neutrophils Percent Auto 64.2 % (45.5-73.1); Platelet Count Result 245 k/mm3 (150-375); Red Blood Count 4.08 M/mm3 (4.6-6.20); Red Cell Distribution Width 12.3 % (11.5-14.5); White Blood Count 8.9 K/mm3 (4.5-10.0)
--- NOTE | 2022-02-15 07:15 | PM.IMPN ---
Progress Note: A&P Assessment and Plan (1) Chest pain: Code(s): R07.9 - Chest pain, unspecified Status: Acute Assessment and Plan: Monitor vital signs, I&Os, chest pain, shortness of breath and patient is a fall risk Monitor serial troponins, Serum electrolytes, and cbc Keep serum potassium >4 and keep magnesium >2 Cardiology consulted, appreciate assistance and recommendations Nitro paste, per ACS protocol, patient denies any headache or active chest pain. Defer to Cardiology team to continue this medication. Monitor for bloody bowel movements,chest pain,SOB or dizziness/lightheadedness Echocardiogram performed on 02/13/2022, Resulted in an LVEF is 65-70% with grade 1 diastolic dysfunction. Consider adding atorvastatin 40 mg daily, aspirin 81 mg daily and metoprolol tartrate 25 mg p.o. b.i.d., patient does not have any signs or symptoms of active chest pain or cardiac concerns. Continue to monitor patient received 324 aspirin in the emergency department. Patient have a stress test performed on 02/16/2022. (2) Hiatal hernia: Code(s): K44.9 - Diaphragmatic hernia without obstruction or gangrene Status: Acute Assessment and Plan: stable (3) Hyperglycemia: Code(s): R73.9 - Hyperglycemia, unspecified Status: Acute Assessment and Plan: hemoglobin A1c was 5.7. No history is of diabetes mellitus. Patient was hyperglycemic in the emergency department. (4) Seizure disorder, grand mal: Code(s): G40.409 - Other generalized epilepsy and epileptic syndromes, not intractable, without status epilepticus Status: Acute Assessment and Plan: monitor Seizure precautions (5) Anoxic brain injury: Code(s): G93.1 - Anoxic brain damage, not elsewhere classified Status: Acute Assessment and Plan: stable Subjective Date/time seen: 02/15/22 07:15 patient is doing well today. Troponins negative, EKG stable. Cardiology following. Plan for stress test on 02/16/2022. No acute distress noted the side of the bed. Patient has been able to eat his meals without difficulty. Patient has been placed on Protonix for GERD like symptoms. No more complaints of chest pain. Patient denies any chest pain, shortness breast, upset stomach or diarrhea. Review of Systems Review of Systems: All systems reviewed & are unremarkable except as noted in HPI and below Exam Narrative: General: No acute distress. Mental Status: Awake, alert and oriented to person, place, and time with clear speech. mentally delayed Skin: Skin in warm, dry and intact without rashes or lesions. Head: Normocephalic and atraumatic. Eyes: Conjunctivae are clear without exudates or hemorrhage. Sclera is non-icteric. EOM are intact, PERRLA. Ears: The external ear and canal are non-tender and without swelling or discharge. Nose: Nasal mucosa is pink and moist. Septum midline. Nares patent bilaterally. Throat: Oral mucosa pink and moist with good dentition. Tongue midline. Neck: The neck supple without adenopathy. Trachea midline. No JVD. Cardiac: S1 and S2 regular rate and rhythm. No murmurs, gallops, or rubs auscultated. Respiratory: Chest wall symmetric, nontender and without deformity or trauma. Respirations even and unlabored. Lung sounds are clear to auscultation in all lobes bilaterally without wheezes, rhonchi, or rales. Abdominal: Abdomen soft, round and non-tender to palpation. Bowel sounds present and normoactive in all 4 quadrants. Spine: Neck and back with grossly normal curvature, no deformity in appearance or signs of trauma. Extremities: Upper and lower extremities atraumatic without tenderness or deformity. Full range of motion and muscle strength 5/5 to all extremities bilaterally. Neurological: Full and symmetric motor and light touch sensation bilaterally. Cranial nerves II-XII grossly intact. Objective Data Vital Signs Vital Signs: Vital Signs - 24 hr 02/14/22
[2022-02-15 07:17] LABS: Alanine Aminotransferase 16 U/L (6-50); Albumin Level 4.3 g/dL (3.5-5.1); Alkaline Phosphatase 44 U/L (38-126); Anion Gap 4 mmol/L (8-16); Aspartate Amino Transferase 19 U/L (17-59); Bilirubin,Total 0.6 mg/dL (0.2-1.3); Blood Urea Nitrogen 19 mg/dL (9-20); Calcium 8.8 mg/dL (8.4-10.2); Carbon Dioxide 28 mmol/L (22-30); Chloride 106 mmol/L (98-107); Estimated CRCL calculation 45 ml/min; Estimated Glomerular Filt Rate 60; Glucose 124 mg/dL (65-110); Sodium 138 mmol/L (137-145)
[2022-02-15] MEDS: NITROGLYCERIN OINTMENT 1 INCH DOSE TRANSDERM (07:40)
[2022-02-15] MEDS: PANTOPRAZOLE 40 MG TABLET PO (10:01)
--- NOTE | 2022-02-15 13:10 | PM.PNCARD ---
Progress Note: A&P Assessment and Plan (1) Chest pain: Code(s): R07.9 - Chest pain, unspecified Status: Acute Plan Assessment Atypical chest pain with no dynamic EKG changes and normal enzymes Hx of hiatal hernia Plan PPI Stress test on Tuesday Subjective Date/time seen: 02/15/22 13:10 no acute events Review of Systems Review of Systems: All systems reviewed & are unremarkable except as noted in HPI and below Exam Const: General: comfortable and no acute distress Other: Able to lie flat Resp: Auscultation: clear to auscultation bilaterally and lung sounds not diminished Other: No chest wall tenderness Cardio: Rate: regular rate Rhythm: regular rhythm Heart sounds: no gallops, no murmurs and no rubs Extrem: General: no edema Other: Normal capillary refills Intact distal pulses. Objective Data Vital Signs Vital Signs: Vital Signs - 24 hr 02/14/22 14:00 02/14/22 16:03 02/14/22 14:29 Temperature 37.3 C Pulse Rate 83 87 Respiratory Rate 20 Blood Pressure 145/88 H Pulse Oximetry 97 97 Oxygen Delivery Room Air 02/14/22 16:03 02/14/22 20:00 02/14/22 20:00 Temperature Pulse Rate 87 87 87 Respiratory Rate 20 20 Blood Pressure Pulse Oximetry 97 97 Oxygen Delivery Room Air 02/15/22 00:00 02/15/22 04:00 02/15/22 08:00 Temperature Pulse Rate 88 77 77 Respiratory Rate 20 Blood Pressure Pulse Oximetry 97 Oxygen Delivery Room Air Intake/Output Intake/Output: Intake & Output 02/12/22 02/13/22 02/14/22 02/15/22 23:59 23:59 23:59 23:59 Intake Total 360 1560 Output Total 575 825 Balance -215 735 Meds/Results Medications: Active Medications Generic Name Dose Route Start Last Admin Trade Name Freq PRN Reason Stop Dose Admin Acetaminophen 650 mg 02/13/22 12:18 Acetaminophen 325 Mg Tablet PO Q6H PRN Mild Pain (1-3) or Fever Melatonin 5 mg 02/13/22 21:00 02/14/22 22:32 Melatonin 5 Mg Tablet PO 5 mg HS SATHYA Administration Nitroglycerin 1 inch 02/13/22 12:00 02/15/22 07:40 Nitroglycerin Ointment 1 Inch Dose TRANSDERM 1 inch Q6HR SATHYA Administration Ondansetron HCl 4 mg 02/13/22 12:20 Ondansetron Inj 4 Mg/2 Ml Vial IV PUSH Q6H PRN Nausea And Vomiting Pantoprazole Sodium 40 mg 02/14/22 11:30 02/15/22 10:01 Pantoprazole 40 Mg Tablet PO 40 mg QAM SATHYA Administration Perflutren Lipid Microsphere 0 ml 02/13/22 12:18 Perflutren Lipid Microspheres 1.5 Ml Vial Diluted To 10 Ml Total Volume IV PUSH ONCE PRN adequate visualization Protocol Radiology Results: ITS Impressions Chest X-Ray 02/13/22 08:22 IMPRESSION: Minimal atelectasis at the lung bases Chest CTA 02/13/22 09:19 IMPRESSION: No evidence of pulmonary embolus and Small sliding hiatal hernia Labs Labs: Laboratory Results - last 24 hr 02/15/22 02/15/22 06:39 06:39 WBC 8.9 RBC 4.08 L Hgb 12.0 L Hct 35.9 L MCV 88.0 MCH 29.4 MCHC 33.4 RDW 12.3 Plt Count 245 MPV 9.8 Immature Gran % (Auto) 0.4 Neut % (Auto) 64.2 Lymph % (Auto) 18.5 [place] % (Auto) 12.0 H Eos % (Auto) 4.5 H Baso % (Auto) 0.4 Lymph # (Auto) 1.65 [place] # (Auto) 1.1 H Eos # (Auto) 0.4 H Baso # (Auto) 0.0 Abs Immat Gran (auto) 0.04 H Absolute Neuts (auto) 5.7 Absolute Nucleated RBC 0.0 Nucleated RBC % 0.0 Sodium 138 Potassium 4.0 Chloride 106 Carbon Dioxide 28 Anion Gap 4 L BUN 19 Creatinine 1.20 Estim Creat Clear Calc 45 Estimated GFR 60 Glucose 124 H Calcium 8.8 Total Bilirubin 0.6 AST 19 ALT 16 Alkaline Phosphatase 44 Total Protein 7.0 Albumin 4.3
[2022-02-15] MEDS: MELATONIN 5 MG TABLET PO (22:01)
[2022-02-16] VITALS (8 sets, daily range): BP systolic 123–126; BP diastolic 78–80; PULSE 73–111; RESP 14–16; TEMP 36.6–36.9; O2SAT 98–100
--- NOTE | 2022-02-16 | EST_ITS ---
Patient Info Name: Kuldeep Sims Age: 66 years : 1955 Gender: Male Ht: 64 in Wt: 160 lbs BSA: 1.83 m2 HR: 84 bpm BP: 130 / 83 mmHg Heart Rhythm: Sinus Rhythm Exam Date: 02/16/2022 1:28 PM Exam Location: [facility] Stress Patient Status: Inpatient Admit Date: 02/13/2022 Staff Ordering Physician: Veronika Carr Attending Provider: Toney Parsons MD Exercise Technologist: Aracelis Penaloza, CT Nurse: veronika carr Exam Type: CA stress venu w NM Study Info Indications R07.9 - Chest pain, unspecified A regadenoson stress test was performed. Summary 1. Normal sinus rhythm. 2. Occasional PVC. 3. No ST segment abnormalities noted following Lexiscan injection. 4. Clinically and electrocardiographically unremarkable Lexiscan stress test. 5. Myocardial perfusion imaging results to be reported by Radiology. Protocol: Lexiscan Stress ECG Details Stage: REST Duration (min): 3 min : 41 sec HR (bpm): 86 SBP (mmHg): 130 DBP (mmHg): 83 Stage: REST Duration (min): 9 min : 49 sec HR (bpm): 92 SBP (mmHg): 130 DBP (mmHg): 83 Stage: STAGE 1 Duration (min): 0 min : 59 sec HR (bpm): 93 SBP (mmHg): 134 DBP (mmHg): 83 Stage: RECOVERY Duration (min): 1 min : 0 sec HR (bpm): 111 SBP (mmHg): 134 DBP (mmHg): 83 Stage: RECOVERY Duration (min): 2 min : 0 sec HR (bpm): 107 SBP (mmHg): 134 DBP (mmHg): 83 Stage: RECOVERY Duration (min): 3 min : 0 sec HR (bpm): 106 SBP (mmHg): 121 DBP (mmHg): 73 Stage: RECOVERY Duration (min): 4 min : 0 sec HR (bpm): 106 SBP (mmHg): 121 DBP (mmHg): 73 Stage: RECOVERY Duration (min): 4 min : 48 sec HR (bpm): 104 SBP (mmHg): 125 DBP (mmHg): 66 Rest HR: 92 bpm Peak HR: 112 bpm Rest Sys BP: 130 mmHg Peak Sys BP: 134 mmHg Max Pred HR: 153 bpm % Max Pred HR: 73 % Target HR: 130 bpm Max RPP: 15,008 bpm*mmHg Total Time: 1 min : 0 sec Rest Rosado BP: 83 mmHg Peak Rosado BP: 83 mmHg Total Dose: 0.4 mg Resting ECG Normal sinus rhythm. Occasional PVC. Stress ECG No ST segment abnormalities noted following Lexiscan injection. Report Signatures
[2022-02-16] MEDS: PANTOPRAZOLE 40 MG TABLET PO (09:37)
--- NOTE | 2022-02-16 14:29 | PM.PNCARD ---
Progress Note: A&P Assessment and Plan (1) Chest pain: Code(s): R07.9 - Chest pain, unspecified Status: Acute Assessment and Plan: Presented with chest pain. Atypical, no EKG changes and negative cardiac enzymes. No recurrence of chest pain while in the hospital. Underwent lexiscan stress test this afternoon. Results pending. Further recommendations to follow review of those results. Subjective Date/time seen: 02/16/22 14:29 Interval history: Feels better today. No chest pain. No complaints of any kind. Review of Systems Review of Systems: All systems reviewed & are unremarkable except as noted in HPI and below Exam Const: General: comfortable and no acute distress Other: Able to lie flat HENMT: General nose exam: Normal nares present and no epistaxis Mouth: Yes moist mucous membranes Eyes: Sclera: sclerae normal Pupils: Equal, round and reactive pupils present Neck: Neck: supple and no JVD Carotids: no bruits Resp: Auscultation: clear to auscultation bilaterally and lung sounds not diminished Other: No chest wall tenderness Cardio: Rate: regular rate Rhythm: regular rhythm Heart sounds: no gallops, no murmurs and no rubs GI: Auscultation: normal bowel sounds Skin: General skin exam: normal color, rashes and/or lesions noted and no erythema Other: Warm Neuro: Cranial nerves: Yes Equal, round and reactive pupils present Speech: normal speech Other: No obvious focal deficit or facial asymmetry Extrem: General: no edema Other: Normal capillary refills Intact distal pulses. Objective Data Vital Signs Vital Signs: Vital Signs - 24 hr 02/15/22 16:00 02/15/22 22:00 02/15/22 20:00 Temperature 36.9 C Pulse Rate 91 94 Respiratory Rate 16 Blood Pressure 125/72 Pulse Oximetry 95 Oxygen Delivery Room Air 02/15/22 20:00 02/16/22 00:00 02/16/22 04:00 Temperature Pulse Rate 107 H 78 73 Respiratory Rate Blood Pressure Pulse Oximetry Oxygen Delivery 02/16/22 06:18 02/16/22 06:00 02/16/22 08:00 Temperature 36.6 C Pulse Rate 78 92 Respiratory Rate 14 Blood Pressure 126/78 Pulse Oximetry 100 Oxygen Delivery Room Air Intake/Output Intake/Output: Intake & Output 02/13/22 02/14/22 02/15/22 02/16/22 23:59 23:59 23:59 23:59 Intake Total 360 1560 1920 Output Total 575 825 800 650 Balance -407 433 7121 -650 Meds/Results Medications: Active Medications Generic Name Dose Route Start Last Admin Trade Name Freq PRN Reason Stop Dose Admin Acetaminophen 650 mg 02/13/22 12:18 Acetaminophen 325 Mg Tablet PO Q6H PRN Mild Pain (1-3) or Fever Melatonin 5 mg 02/13/22 21:00 02/15/22 22:01 Melatonin 5 Mg Tablet PO 5 mg HS SATHYA Administration Nitroglycerin 1 inch 02/13/22 12:00 02/16/22 06:19 Nitroglycerin Ointment 1 Inch Dose TRANSDERM Not Given Q6HR SATHYA Ondansetron HCl 4 mg 02/13/22 12:20 Ondansetron Inj 4 Mg/2 Ml Vial IV PUSH Q6H PRN Nausea And Vomiting Pantoprazole Sodium 40 mg 02/14/22 11:30 02/16/22 09:37 Pantoprazole 40 Mg Tablet PO 40 mg QAM SATHYA Administration Perflutren Lipid Microsphere 0 ml 02/13/22 12:18 Perflutren Lipid Microspheres 1.5 Ml Vial Diluted To 10 Ml Total Volume IV PUSH ONCE PRN adequate visualization Protocol Radiology Results: ITS Impressions Chest X-Ray 02/13/22 08:22 IMPRESSION: Minimal atelectasis at the lung bases Chest CTA 02/13/22 09:19 IMPRESSION: No evidence of pulmonary embolus and Small sliding hiatal hernia
--- NOTE | 2022-02-16 16:00 | PM.DS ---
DS: Admitting Diagnosis Discharge Date 02/16/2022 1601 Admitting Diagnosis Atypical chest pain DS: Discharge Diagnosis Discharge Diagnosis (1) Chest pain: Qualifiers: Chest pain type: other chest pain Qualified Code(s): R07.89 - Other chest pain Code(s): R07.9 - Chest pain, unspecified Status: Acute (2) GERD without esophagitis: Code(s): K21.9 - Gastro-esophageal reflux disease without esophagitis Status: Acute (3) Hyperglycemia: Code(s): R73.9 - Hyperglycemia, unspecified Status: Acute (4) Anoxic brain injury: Code(s): G93.1 - Anoxic brain damage, not elsewhere classified Status: Chronic DS: Summary Hospital Course Hospital Course: Kuldeep Sims is a 66-year-old male with a past medical history of anoxic brain injury since , hyperlipidemia, and seizure disorder-grand mal. ? He presented to [facility] with complaints of sharp pain and pressure that was nonradiating 8/10 chest pain starting at 6:00 a.m. on the day of admission.? He denied c/o shortness of breath, diaphoresis.? He did endorse a cough for 24-48? hours to an emergency department nurse and therefore COVID test was added, which was negative.? While in the emergency department labs and imaging were obtained.? Patient had WBC of 6.5, hemoglobin 13, hematocrit 38.9, platelet 247, sodium 138, potassium 3.6, BUN 29, creatinine 1.3, glucose 141 and a negative troponin.? Lipase 235. Alcohol level that was negative.? A chest x-ray did reveal minimal atelectasis at the lung bases and a CTA was performed with no evidence of pulmonary embolism and had a small sliding hiatall hernia.? EKG revealed normal sinus rhythm with PVCs no ST changes.?Patient was administered 324 mg of aspirin x1, as well as IV Dilaudid, lorazepam, morphine and 1 in nitroglycerin ointment applied to the chest.? The patient was referred for observation. Cardiology was consulted for assistance with management. Cardiac enzymes were negative x3. Echocardiogram was obtained and demonstrated grade I diastolic dysfunction, but normal LV systolic function and EF. NM Alexus stress test was obtained at the earliest convenience on Tuesday02/16/22. Alexus scan was negative for ischemia and EF 51%. His chest pain was thought to be related to GERD. He was started on protonix 40 mg PO daily. He denied chest pain at the time of discharge. Lipid panel was obtained. LDL was <130 and triglycerides 95, He was continued on fenofibrate therapy at discharge. The patient was discharged home in stable condition on PPI therapy for 6-8 weeks. He will follow up with his PCP for further evaluation. He was counseled on heart healthy diet, recommended to avoid large portion sizes, alcohol, smoking or eating 2 hours before bed. He was instructed on when to seek further care. Status at Discharge Cognitive/behavioral status at discharge: Alert. Baseline cognitive status. Pleasant. Functional status at discharge: independent ambulation Overall status at discharge: patient is back to baseline Time Spent with Patient Time attestation: Total time spent providing and/or coordinating discharge services: Time spent: Greater than 30 minutes Exam Narrative: General: No acute distress. Sitting up in bed. Mental Status/Psych: Awake, alert and oriented to person, place, and time with clear speech. mentally delayed. Pleasant and cooperative. Skin: Skin in warm, dry and intact without rashes or lesions. HEENT: Normocephalic. Conjunctivae are clear. Sclera is non-icteric. EOM are intact, PERRLA. Grossly normal hearing. Oral mucosa pink. Tongue midline. Neck: Supple without adenopathy. No JVD. Cardiac: S1 and S2 regular rate and rhythm. No murmurs, gallops, or rubs auscultated. Respiratory: Chest wall symmetric, nontender and without deformity or trauma. Respirations even and unlabored. Lung sounds are clear to auscultation in all lobes bilaterally without wheezes, rhonchi,
== END 2022-02-16 17:05 | disposition home or self-care (01) ==
LOC: ANHED 09:41 → ANHIMU 11:27 → ANH3MEDSUR 02-14 22:06 → ANHIMU 02-18 10:16
PROVIDERS: Nurse Practitioner Family; Admitting Provider Chiropractor; Emergency Provider Emergency Medicine; PCP Emergency Medicine; Visit Provider Nurse Practitioner Family
DX: R07.9 Chest pain, unspecified (principal); K21.9 Gastro-esophageal reflux disease without esophagitis; R73.9 Hyperglycemia, unspecified; G93.1 Anoxic brain damage, not elsewhere classified; R05.9 Cough, unspecified; Z20.822 Contact with and (suspected) exposure to COVID-19; G40.409 Other generalized epilepsy and epileptic syndromes, not intractable, without status epilepticus; K44.9 Diaphragmatic hernia without obstruction or gangrene; E78.5 Hyperlipidemia, unspecified; Z77.22 Contact with and (suspected) exposure to environmental tobacco smoke (acute) (chronic)
CPT/HCPCS: 36415; 71045; 71275; 78452; 80053; 80307; 83036; 83690; 83735; 84443; 84484; 85025; 85380; 85610; 85730; 93005; 93017; 93306; 96372; 96374; 96375; 99285; A9270; A9502; C9803; G0378; J1170; J2060; J2270; J2405; J2785; Q9967; U0003; U0005

== ENCOUNTER 2022-05-17 07:42 | Outpatient (CLI) | payer MEDICARE, SELFPAY ==
[2022-05-17 08:05] LABS: Alanine Aminotransferase 25 U/L (6-50); Albumin Level 4.7 g/dL (3.5-5.1); Alkaline Phosphatase 44 U/L (38-126); Anion Gap 8 mmol/L (8-16); Aspartate Amino Transferase 27 U/L (17-59); Bilirubin,Total 0.5 mg/dL (0.2-1.3); Blood Urea Nitrogen 28 mg/dL (9-20); Calcium 9.2 mg/dL (8.4-10.2); Carbon Dioxide 25 mmol/L (22-30); Chloride 108 mmol/L (98-107); Cholesterol 190 mg/dL (0-200); Estimated Glomerular Filt Rate 55; Glucose 111 mg/dL (65-110); HDL Direct 48 mg/dL; Potassium 4.2 mmol/L (3.4-5.0); Sodium 141 mmol/L (137-145); Triglycerides 91 mg/dL (<150)
[2022-05-17 08:15] LABS: LDL Cholesterol Direct 107 mg/dL
[2022-05-17 08:21] LABS: Hemoglobin A1C 5.5 % (<5.7)
[2022-05-17 08:35] LABS: Prostate Specific Antigen 1.4 ng/mL (< OR = 4.0)
== END 2022-05-17 07:43 | disposition home or self-care (01) ==
LOC: ANHLAB 07:45
PROVIDERS: PCP Emergency Medicine; Visit Provider Emergency Medicine
DX: Z12.5 Encounter for screening for malignant neoplasm of prostate (principal); E78.5 Hyperlipidemia, unspecified; R73.9 Hyperglycemia, unspecified
CPT/HCPCS: 36415; 80053; 80061; 83036; 84153; G0103

== ENCOUNTER 2022-09-10 07:43 | Outpatient (CLI) | payer MEDICARE, SELFPAY ==
[2022-09-10 08:57] LABS: Alanine Aminotransferase 23 U/L (6-50); Albumin Level 4.2 g/dL (3.5-5.1); Alkaline Phosphatase 60 U/L (38-126); Anion Gap 6 mmol/L (8-16); Aspartate Amino Transferase 23 U/L (17-59); Bilirubin,Total 0.9 mg/dL (0.2-1.3); Blood Urea Nitrogen 19 mg/dL (9-20); Calcium 8.8 mg/dL (8.4-10.2); Carbon Dioxide 29 mmol/L (22-30); Chloride 107 mmol/L (98-107); Cholesterol 212 mg/dL (0-200); Estimated Glomerular Filt Rate > 60; Glucose 110 mg/dL (65-110); HDL Direct 34 mg/dL; Potassium 4.2 mmol/L (3.4-5.0); Sodium 142 mmol/L (137-145); Triglycerides 144 mg/dL (<150)
[2022-09-10 09:08] LABS: LDL Cholesterol Direct 123 mg/dL
== END 2022-09-10 07:44 | disposition home or self-care (01) ==
LOC: ANHLAB 07:44
PROVIDERS: PCP Emergency Medicine; Visit Provider Emergency Medicine
DX: E78.5 Hyperlipidemia, unspecified (principal)
CPT/HCPCS: 36415; 80053; 80061

== ENCOUNTER 2022-11-23 09:42 | Outpatient (CLI) | payer MEDICARE, SELFPAY ==
--- NOTE | ~2022-11-23 | US_ITS ---
EXAMINATION: US scrotum doppler DATE: 11/23/2022 10:29 INDICATION: Vascular disorder of male genital organs. TECHNIQUE: Grayscale and Doppler ultrasound images of the testes were obtained. COMPARISON: None. FINDINGS: The right testis measures 3.8 x 1.9 x 2.6 cm. The left testis measures 5.0 x 2.3 x 2.7 cm. There is normal vascular flow to both testes. The right epididymis is normal with normal vascular andrés w. The left epididymis is normal with normal vascular flow. There is no varicocele or hydrocele. IMPRESSION: 1. Normal testes. Reviewed, dictated and finalized at location A. IMPRESSION: 1. Normal testes.
== END 2022-11-23 09:43 | disposition home or self-care (01) ==
PROVIDERS: PCP Emergency Medicine; Visit Provider Emergency Medicine
DX: N50.1 Vascular disorders of male genital organs (principal)
CPT/HCPCS: 76870; 93976

== ENCOUNTER 2022-12-03 07:10 | Outpatient (CLI) | payer MEDICARE, SELFPAY ==
[2022-12-03 07:48] LABS: Alanine Aminotransferase 47 U/L (6-50); Albumin Level 4.4 g/dL (3.5-5.1); Alkaline Phosphatase 46 U/L (38-126); Anion Gap 5 mmol/L (8-16); Aspartate Amino Transferase 31 U/L (17-59); Bilirubin,Total 0.6 mg/dL (0.2-1.3); Blood Urea Nitrogen 17 mg/dL (9-20); Calcium 9.3 mg/dL (8.4-10.2); Carbon Dioxide 31 mmol/L (22-30); Chloride 106 mmol/L (98-107); Cholesterol 204 mg/dL (0-200); Estimated Glomerular Filt Rate 50; Glucose 117 mg/dL (65-110); HDL Direct 39 mg/dL; Potassium 4.1 mmol/L (3.4-5.0); Sodium 142 mmol/L (137-145); Triglycerides 132 mg/dL (<150)
[2022-12-03 07:59] LABS: LDL Cholesterol Direct 121 mg/dL
== END 2022-12-03 07:11 | disposition home or self-care (01) ==
LOC: ANHLAB 07:11
PROVIDERS: PCP Emergency Medicine; Visit Provider Emergency Medicine
DX: E78.5 Hyperlipidemia, unspecified (principal)
CPT/HCPCS: 36415; 80053; 80061

== ENCOUNTER 2022-12-12 07:02 | Emergency (ER) | payer MEDICARE, SELFPAY ==
[2022-12-12] VITALS (29 sets, daily range): BP systolic 142–183; BP diastolic 73–89; PULSE 47–83; RESP 11–22; TEMP 36.6; O2SAT 91–100
--- NOTE | ~2022-12-12 | XR_ITS ---
EXAMINATION: XR chest 2V DATE: 12/12/2022 07:37 INDICATION: Chest pain and cough TECHNIQUE: PA and lateral views of the chest were obtained. COMPARISON: Chest radiograph dated 02/13/2022 FINDINGS: The lungs remain clear with no focal airspace opacities, pulmonary edema, pleural effusion or pneumot horax. Heart size is normal. Small hiatal hernia. Mild thoracic spondylosis. IMPRESSION: 1. No acute cardiopulmonary disease. 2. Small hiatal hernia. Reviewed, dictated and finalized at location A.
--- NOTE | ~2022-12-12 | CT_ITS ---
EXAMINATION: CT abdomen pelvis w con DATE: 12/12/2022 12:26 INDICATION: Epigastric pain TECHNIQUE: Computed tomography (CT) of the abdomen and pelvis was performed with 100 mL Omnipaque-350 intravenous contrast. Automated exposure control and iterative reconstruction technique were employe d. The dose-length product was 368.05 mGy-cm. COMPARISON: None FINDINGS: Mild elevation of left hemidiaphragm with unchanged mild discoid atelectasis/scarring in the left low er lobe. Heart size is normal. Small sliding-type hiatal hernia. Liver, gallbladder, spleen, pancreas and bilateral adrenal glands are normal. There are few subcentimeter cortical cyst at the upper pole the left kidney. There are also bilateral renal parapelvic cysts more prominent on the left. Diverti culum at the junction of the descending and sigmoid colon without adjacent inflammatory stranding to suggest diverticulitis. Small bowel and appendix are normal. Bladder is normal. Prostatomegaly. No fr ee intraperitoneal gas or fluid. No pathologically enlarged abdominal or pelvic lymphadenopathy. Mild lumbar levocurvature with moderate spondylosis. IMPRESSION: 1. No acute intra-abdominal/pelvic process. 2. Small sliding-type hiatal hernia. Reviewed, dictated and finalized at location A.
--- NOTE | 2022-12-12 07:04 | ECG_ITS ---
Measurements Intervals [place] Rate: 62 P: 63 UT: 156 QRS: 26 QRSD: 86 T: 59 QT: 384 QTc: 392 Interpretive Statements SINUS RHYTHM WITH SINUS ARRHYTHMIA MODERATE VOLTAGE CRITERIA FOR LVH, CONSIDER NORMAL VARIANT [MEETS CRITERIA IN ONE OF: R(aVL), S(V1), R(V5), R(V5/V6)+S(V1)] COMPARED TO ECG 02/13/2022 07:57:31 SINUS ARRHYTHMIA NOW PRESENT Electronically Signed On 12-12-2022 13:44:09 CDT by Jena Álvarez M.D.
[2022-12-12 07:21] LABS: Basophils Percent Auto 0.4 % (0.2-1.2); Eosinophils Absolute Auto 0.2 K/mm3 (0-0.3); Eosinophils Percent Auto 2.2 % (0-4.4); Hematocrit 39.9 % (42.0-52.0); Hemoglobin 13.3 g/dL (14.0-18.0); Immature Granulocyte Absolute 0.03 K/mm3 (0.00-0.031); Immature Granulocyte Percent A 0.4 % (0-0.5); Lymphocytes Absolute Auto 1.51 K/mm3 (0.9-3.2); Lymphocytes Percent Auto 19.9 % (18.3-44.2); Mean Corpuscular HGB Conc 33.3 g/dl (32-36); Mean Corpuscular Hemoglobin 28.7 pg (26-34); Mean Platelet Volume 9.5 fl (7.4-10.4); Monocytes Absolute Auto 0.8 K/mm3 (0.1-0.6); Monocytes Percent Auto 10.6 % (2.6-8.5); Neutrophils Percent Auto 66.5 % (45.5-73.1); Platelet Count Result 286 k/mm3 (150-375); Red Blood Count 4.64 M/mm3 (4.6-6.20); Red Cell Distribution Width 11.9 % (11.5-14.5); White Blood Count 7.6 K/mm3 (4.5-10.0)
[2022-12-12 07:31] LABS: INR 0.9; Prothrombin Time 12.9 Seconds (11.1-14.7)
[2022-12-12 07:32] LABS: Alanine Aminotransferase 26 U/L (6-50); Albumin Level 4.7 g/dL (3.5-5.1); Alkaline Phosphatase 53 U/L (38-126); Anion Gap 12 mmol/L (8-16); Aspartate Amino Transferase 28 U/L (17-59); Bilirubin,Total 0.7 mg/dL (0.2-1.3); Blood Urea Nitrogen 27 mg/dL (9-20); Calcium 9.2 mg/dL (8.4-10.2); Carbon Dioxide 18 mmol/L (22-30); Chloride 104 mmol/L (98-107); Estimated CRCL calculation 47 ml/min; Estimated Glomerular Filt Rate 60; Glucose 161 mg/dL (65-110); Sodium 134 mmol/L (137-145)
[2022-12-12 07:33] LABS: Partial Thromboplastin Time 26.5 SECONDS (22.3-36.8)
--- NOTE | 2022-12-12 07:34 | ED.GENADULT ---
HPI - General Adult General Chief complaint: Chest Pain Stated complaint: chest pain, sweat Time Seen by Provider: 12/12/22 07:04 History of Present Illness HPI narrative: 67-year-old male presented the emergency department for evaluation of epigastric pain with associated diaphoresis and shortness of breath. Patient states the symptoms woke him up at approximately 430 this morning. Patient denies any radiation of the pain to his upper chest neck arms or back. Patient denies any prior history of coronary artery disease. Patient had a stress test approximately 1 year ago that was negative. Patient states he has not been taking excessive ibuprofen and does not drink alcohol. Patient's yes states that the patient did have a lot of food to eat at a get together yesterday and that this was unusual for him. Patient does have reproducible epigastric tenderness. Patient does have prior history of seizures and anoxic brain injury. Patient also does have a history of GERD Related Data Allergies Allergy/AdvReac Type Severity Reaction Status Date / Time No Known Allergies Allergy Verified 12/12/22 07:11 Review of Systems Review of Systems: All systems reviewed & are unremarkable except as noted in HPI and below PMFSH Past Medical History Medical History Anoxic brain injury Issue at Chronic GERD High cholesterol Hyperlipidemia Seizure disorder, grand mal SOB (shortness of breath) Family History Family History Mother Cancer Cerebrovascular accident Father Cancer Sibling Diabetes mellitus Cerebrovascular accident Social History Social History Smoking status: Never smoker Second hand tobacco smoke exposure: Yes (Childhood) Alcohol intake: never Substance use: never Substance use type: does not use Living arrangements: with family Gender identity (if verbalized by the patient): Male Spiritual care concerns: No Agree to blood products: Yes Exam Narrative: APPEARANCE: Well appearing, no pain, no distress, well-nourished. HEAD: normocephalic, atraumatic. EYES: PERRLA/EOMI, conjunctivae clear. NOSE: Normal no drainage NECK: Supple. No adenopathy, no masses. RESPIRATORY: Airway patent, respirations nonlabored. Clear to auscultation bilaterally, no rales, rhonchi, wheezing. CARDIOVASCULAR: Regular rate and rhythm without murmurs rubs or gallops. ABDOMINAL: Soft, epigastric tenderness to palpation MUSCULOSKELETAL: Moves all extremities. Strength/ROM intact, No edema, No calf tenderness. NEURO: Alert. Cranial nerves II through XII intact. Grossly intact SKIN: Warm, dry. Normal Color Course Course Emergency Course: 67-year-old male presented the ED for epigastric pain. Patient was treated with a GI cocktail for his pain. EKG was ordered on arrival and this showed no evidence of acute STEMI. Additional cardiac work-up is pending. Patient and family were updated on the results of the work-up so far and plan for treatment. Patient reports he did have some mild improvement with his symptoms after the GI cocktail. Patient is afebrile with no leukocytosis. Patient hemoglobin is stable at 13.3. Patient's CMP shows a normal creatinine and no elevation in T. bili AST AST or alk phos. Low concern for acute Carito cystitis. Patient's lipase is also within normal limits. Patient did have a normal EKG and negative serial troponins. Low concern for cardiac etiology for the patient's symptoms. Patient was not symptom-free so an CT abdomen pelvis without contrast ordered to evaluate for colitis, diverticulitis or other intra-abdominal pathology and CT showed no acute abnormality. Patient will be treated as possible gastritis and was recommended to take Prilosec. Patient states his symptoms were worsened after having a large meal
[2022-12-12] MEDS: BELLADONNA ALK/PHENOB ELIX 10 ML, MAG HYDROX/ALUMINUM HYD/SIMETH 30 ML, LIDOCAINE HCL 2... PO (07:36)
[2022-12-12 07:42] LABS: Troponin I < 0.012 ng/mL (0.000-0.034)
[2022-12-12 07:54] LABS: Lipase 249 U/L (23-300)
[2022-12-12] MEDS: ONDANSETRON INJ 4 MG/2 ML VIAL IV PUSH (07:57)
[2022-12-12] MEDS: HYDROmorphone HCL INJ (*CRX) 1 MG/ML SYR 0.5 MG IV PUSH (07:58)
[2022-12-12 11:34] LABS: Troponin I < 0.012 ng/mL (0.000-0.034)
== END 2022-12-12 13:16 | disposition home or self-care (01) ==
PROVIDERS: Emergency Provider Emergency Medicine; PCP Emergency Medicine
DX: R10.13 Epigastric pain (principal); K21.9 Gastro-esophageal reflux disease without esophagitis; E78.5 Hyperlipidemia, unspecified; G40.909 Epilepsy, unspecified, not intractable, without status epilepticus
CPT/HCPCS: 36415; 71046; 74177; 80053; 83690; 84484; 85025; 85610; 85730; 93005; 96374; 96375; 99284; A9270; J1170; J2405; Q9967

== ENCOUNTER 2023-07-15 15:19 | Outpatient (CLI) | payer MEDICARE, SELFPAY ==
[2023-07-15 16:21] LABS: Alanine Aminotransferase 31 U/L (6-50); Albumin Level 5.1 g/dL (3.5-5.1); Alkaline Phosphatase 45 U/L (38-126); Anion Gap 12 mmol/L (8-16); Aspartate Amino Transferase 30 U/L (17-59); Bilirubin,Total 0.9 mg/dL (0.2-1.3); Blood Urea Nitrogen 25 mg/dL (9-20); Calcium 9.9 mg/dL (8.4-10.2); Carbon Dioxide 25 mmol/L (22-30); Chloride 107 mmol/L (98-107); Estimated Glomerular Filt Rate 55; Glucose 137 mg/dL (65-110); Sodium 144 mmol/L (137-145)
[2023-07-20 00:55] LABS: Vitamin D 1,25 (OH)2 Total 78 pg/mL (18-72); Vitamin D2 1,25 (OH)2 <8 pg/mL; Vitamin D3 1,25 (OH)2 78 pg/mL
== END 2023-07-15 15:20 | disposition home or self-care (01) ==
PROVIDERS: PCP Emergency Medicine; Visit Provider Emergency Medicine
DX: R73.9 Hyperglycemia, unspecified (principal); E55.9 Vitamin D deficiency, unspecified
CPT/HCPCS: 36415; 80053; 82652

== ENCOUNTER 2023-07-22 09:22 | Outpatient (CLI) | payer MEDICARE, SELFPAY ==
[2023-07-22 10:37] LABS: SARS-CoV-2 RNA PCR Negative (Negative)
== END 2023-07-22 09:23 | disposition home or self-care (01) ==
LOC: ANHLAB 09:23
PROVIDERS: PCP Emergency Medicine; Visit Provider Emergency Medicine
DX: R09.81 Nasal congestion (principal); Z20.822 Contact with and (suspected) exposure to COVID-19
CPT/HCPCS: 87635

== ENCOUNTER 2024-01-11 06:41 | Outpatient (CLI) | payer MEDICARE, SELFPAY ==
[2024-01-11 08:43] LABS: Alanine Aminotransferase 17 U/L (6-50); Albumin Level 4.4 g/dL (3.5-5.1); Alkaline Phosphatase 77 U/L (38-126); Anion Gap 4 mmol/L (4-12); Aspartate Amino Transferase 22 U/L (17-59); Bilirubin,Total 0.6 mg/dL (0.2-1.3); Blood Urea Nitrogen 22 mg/dL (9-20); Calcium 9.1 mg/dL (8.4-10.2); Carbon Dioxide 29 mmol/L (22-30); Chloride 108 mmol/L (98-107); Cholesterol 191 mg/dL (0-200); Estimated Glomerular Filt Rate > 60; Glucose 134 mg/dL (65-110); HDL Direct 34 mg/dL; Potassium 4.1 mmol/L (3.4-5.0); Sodium 141 mmol/L (137-145); Triglycerides 111 mg/dL (<150)
[2024-01-11 08:51] LABS: Vitamin D 25 Hydroxy 22.8 ng/mL
[2024-01-11 08:54] LABS: LDL Cholesterol Direct 125 mg/dL
[2024-01-11 09:15] LABS: Prostate Specific Antigen 1.7 ng/mL (< OR = 4.0)
== END 2024-01-11 06:42 | disposition home or self-care (01) ==
LOC: ANHLAB 06:42
PROVIDERS: PCP Emergency Medicine; Visit Provider Emergency Medicine
DX: Z12.5 Encounter for screening for malignant neoplasm of prostate (principal); R73.9 Hyperglycemia, unspecified; E78.2 Mixed hyperlipidemia; E55.9 Vitamin D deficiency, unspecified
CPT/HCPCS: 36415; 80053; 80061; 82306; 83036; 84153; G0103

== ENCOUNTER 2024-02-20 13:48 | Outpatient (CLI) | payer MEDICARE, SELFPAY ==
--- NOTE | ~2024-02-20 | XR_ITS ---
XR knee RT 3V Ordering provider: Josse Limon MD History: . Unspecified Pain . Comparison: February 18, 2022 FINDINGS: BONES: No acute fracture or dislocation. JOINT SPACES: Slight narrowing of the medial compartment. Bony fragment is seen in the joint space wh ich may be a avulsion fracture from the tibial spine. SOFT TISSUES: Normal. Metallic fragment is seen in the area of the patellar tendon unchanged. IMPRESSION: No acute osseous abnormality right knee. Mild osteoarthritic changes. Bony fragment in the joint space which may be a avulsion fracture from the tibial spine. Reviewed, dictated and finalized at location A. IMPRESSION: No acute osseous abnormality right knee. Mild osteoarthritic changes. Bony fragment in the joint space which may be a avulsion fracture from the tibi al spine.
--- NOTE | ~2024-02-20 | XR_ITS ---
XR knee LT 3V Ordering provider: Josse Limon MD History: . 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 Comparison: February 18, 2023 FINDINGS: BONES: No acute fracture or dislocation. JOINT SPACES: Narrowing of the medial compartment. SOFT TISSUES: Normal. IMPRESSION: No acute osseous abnormality left knee. Moderate to severe osteoarthritic changes. Consider MRI knee if there is concern for soft tissue internal derangement. Reviewed, dictated and finalized at location A.
== END 2024-02-20 13:49 | disposition home or self-care (01) ==
PROVIDERS: PCP Emergency Medicine; Visit Provider Orthopaedic Surgery
DX: M17.0 Bilateral primary osteoarthritis of knee (principal)
CPT/HCPCS: 73562

== ENCOUNTER 2024-03-20 10:21 | Outpatient (RCR) | payer MEDICARE, SELFPAY ==
--- NOTE | 2024-03-20 11:54 | PTOPEVDC ---
Assessment and note entered by Eliot Zhu, PT Thank you for referring Kuldeep Sims to [facility].? An evaluation has been completed. No further treatment is needed. Evaluation Information Assessment Status Evaluation ICD-10 Condition Codes (PT) M25.561,Pain in left knee M25.562 Subjective Information Reports that he has been having knee pain for year . Left one is worse than right. He has had imaging done. HE was told to try therapy and surgery was not indicated to him at this time. He frequents the gym and works on leg raises and upper body. Swims and does treadmill as part of exercise as well. Goes every 3 or 4 days. Pain is all on the front of the knees Reported Pain Level Pain Score 2: Self Report Assessment PT Clinical Summary Patient demonstrates minor loss in veronica terminal knee extension and poor gross hip mobility. He reports a high level of activity and exercise with consistency. His LEFS report indicates 2% disability with would be quite low for a self report. I discussed with him the benefit of therapy and he elected to perform the indicated HEP independently and discharge from therapy at this time. I spent extensive time on education of deficits with HEP to help address as part of his daily activity. Patient will be discharged this date with exercises per request. Plan of Care Treatment Frequency and D/C to HEP Duration
== END 2024-03-20 13:18 | disposition home or self-care (01) ==
LOC: ANHPT 10:21
PROVIDERS: PCP Emergency Medicine; Visit Provider Orthopaedic Surgery
DX: M17.0 Bilateral primary osteoarthritis of knee (principal)
CPT/HCPCS: 97110; 97161

== ENCOUNTER 2024-07-23 07:20 | Outpatient (CLI) | payer MEDICARE, SELFPAY ==
[2024-07-23 08:18] LABS: Alanine Aminotransferase 19 U/L (6-50); Albumin Level 4.2 g/dL (3.5-5.1); Alkaline Phosphatase 78 U/L (38-126); Anion Gap 4 mmol/L (4-12); Aspartate Amino Transferase 24 U/L (17-59); Bilirubin,Total 0.9 mg/dL (0.2-1.3); Blood Urea Nitrogen 19 mg/dL (9-20); Calcium 9.1 mg/dL (8.4-10.2); Carbon Dioxide 30 mmol/L (22-30); Chloride 107 mmol/L (98-107); Cholesterol 190 mg/dL (0-200); Estimated Glomerular Filt Rate 60; Glucose 119 mg/dL (65-110); HDL Direct 32 mg/dL; Potassium 4.1 mmol/L (3.4-5.0); Sodium 141 mmol/L (137-145); Triglycerides 157 mg/dL (<150)
[2024-07-23 08:29] LABS: LDL Cholesterol Direct 111 mg/dL
[2024-07-23 08:54] LABS: Vitamin D 25 Hydroxy 23.8 ng/mL
== END 2024-07-23 07:21 | disposition home or self-care (01) ==
PROVIDERS: PCP Emergency Medicine; Visit Provider Emergency Medicine
DX: E78.5 Hyperlipidemia, unspecified (principal); E55.9 Vitamin D deficiency, unspecified
CPT/HCPCS: 36415; 80053; 80061; 82306

== ENCOUNTER 2025-01-18 06:47 | Outpatient (CLI) | payer MEDICARE, SELFPAY ==
[2025-01-18 07:56] LABS: Alanine Aminotransferase 28 U/L (6-50); Albumin Level 4.4 g/dL (3.5-5.1); Alkaline Phosphatase 78 U/L (38-126); Anion Gap 7 mmol/L (4-12); Aspartate Amino Transferase 26 U/L (17-59); Bilirubin,Total 0.8 mg/dL (0.2-1.3); Blood Urea Nitrogen 23 mg/dL (9-20); Calcium 9.3 mg/dL (8.4-10.2); Carbon Dioxide 26 mmol/L (22-30); Chloride 108 mmol/L (98-107); Estimated Glomerular Filt Rate > 60; Glucose 117 mg/dL (65-110); Potassium 4.3 mmol/L (3.4-5.0); Sodium 141 mmol/L (137-145); Total Protein 7.3 g/dL (6.3-8.2)
[2025-01-18 08:35] LABS: Vitamin D 25 Hydroxy < 12.8 ng/mL
== END 2025-01-18 06:48 | disposition home or self-care (01) ==
LOC: ANHLAB 06:48
PROVIDERS: PCP Emergency Medicine; Visit Provider Emergency Medicine
DX: E78.5 Hyperlipidemia, unspecified (principal); E55.9 Vitamin D deficiency, unspecified
CPT/HCPCS: 36415; 80053; 82306

== ENCOUNTER 2025-07-24 06:49 | Outpatient (CLI) | payer MEDICARE, SELFPAY ==
[2025-07-24 07:49] LABS: Alanine Aminotransferase 18 U/L (6-50); Albumin Level 4.1 g/dL (3.5-5.1); Alkaline Phosphatase 89 U/L (38-126); Anion Gap 2 mmol/L (4-12); Aspartate Amino Transferase 26 U/L (17-59); Bilirubin,Total 0.6 mg/dL (0.2-1.3); Blood Urea Nitrogen 19 mg/dL (9-20); Calcium 8.7 mg/dL (8.4-10.2); Carbon Dioxide 28 mmol/L (22-30); Chloride 108 mmol/L (98-107); Cholesterol 190 mg/dL (0-200); Estimated Glomerular Filt Rate > 60; Glucose 126 mg/dL (65-110); HDL Direct 38 mg/dL; Potassium 4.2 mmol/L (3.4-5.0); Sodium 138 mmol/L (137-145); Total Protein 7.0 g/dL (6.3-8.2); Triglycerides 195 mg/dL (<150)
== END 2025-07-24 06:50 | disposition home or self-care (01) ==
PROVIDERS: PCP Emergency Medicine; Visit Provider Emergency Medicine
DX: E55.9 Vitamin D deficiency, unspecified (principal); I10 Essential (primary) hypertension; E78.5 Hyperlipidemia, unspecified
CPT/HCPCS: 36415; 80053; 80061; 82306